=== PATIENT | female | born 1950 | race Caucasian/White ===

== ENCOUNTER → 2018-04-02 10:12 | Outpatient (CLI) | payer OTHER, SELFPAY ==
--- NOTE | 2018-04-02 | DI.MG.S_ITS ---
UNILATERAL RIGHT DIGITAL DIAGNOSTIC MAMMOGRAM 3D/2D SHORT-TERM FOLLOW-UP: 04/02/2018 CLINICAL: Patient returns for a 6 month follow up of the right breast. Comparison is made to exams dated: 09/28/2017 mammogram, 09/21/2017 mammogram, and 01/18/2013 mammogram - [facility]. The tissue of the right breast is heterogeneously dense. This may lower the sensitivity of mammography. There is an asymmetry in the right breast middle depth central to the nipple seen on the craniocaudal view only. This is not significantly changed. No other significant masses or calcifications are seen in the breast. IMPRESSION: PROBABLY BENIGN The asymmetry in the right breast is probably benign. A follow-up mammogram in 6 months is recommended to demonstrate stability. This exam was interpreted at Station ID: [id number]. NOTE: For mammograms, a report in lay terms will be sent to the patient. Approximately 15% of breast malignancies will not be visualized mammographically. In the management of a palpable breast mass, a negative mammogram must not discourage biopsy of a clinically suspicious lesion. SUMMARY: The patient will be due for her bilateral mammogram at this time. Electronically Signed By: Madeline Cevallos M.D. lk/:04/02/2018 10:51:11 letter sent: Followup Recommended ACR BI-RADS Category 3: Probably benign 3343F
== END ==
PROVIDERS: PCP Internal Medicine; Visit Provider Internal Medicine
DX: R92.8 Other abnormal and inconclusive findings on diagnostic imaging of breast (principal)
CPT/HCPCS: 77065; G0279

== ENCOUNTER → 2018-05-14 13:26 | Outpatient (CLI) | payer OTHER, SELFPAY ==
[2018-05-14 15:05] LABS: BUN Creatinine Ratio 23.8 (6-22); Blood Urea Nitrogen 19 mg/dL (7-17); Calcium 10.2 mg/dL (8.4-10.2); Carbon Dioxide 32 mmol/L (22-32); Chloride 98 mmol/L (98-107); Estimated Glomerular Filt Rate > 60.0 mL/min (>60); Glucose 162 mg/dL (80-110); HEMOLYSIS < 15 (0-50); Potassium 4.4 mmol/L (3.4-5.1); Sodium 142 mmol/L (137-145)
== END ==
PROVIDERS: PCP Internal Medicine; Visit Provider Internal Medicine
DX: I10 Essential (primary) hypertension (principal); R10.13 Epigastric pain
CPT/HCPCS: 36415; 80048; 86677

== ENCOUNTER → 2018-12-24 08:29 | Outpatient (CLI) | payer OTHER, SELFPAY ==
--- NOTE | 2018-12-24 | DI.MG.S_ITS ---
BILATERAL DIGITAL DIAGNOSTIC MAMMOGRAM 3D/2D: 12/24/2018 CLINICAL: Late short term follow up right breast. Due bilaterally. Comparison is made to exams dated: 04/02/2018 mammogram, 09/28/2017 mammogram, 09/21/2017 mammogram, and 01/18/2013 mammogram - [facility]. The tissue of both breasts is heterogeneously dense. This may lower the sensitivity of mammography. There is an asymmetry in the right breast middle depth central to the nipple seen on the craniocaudal view only. This is less prominent than the prior study and overall stable. No other significant masses, calcifications, or other findings are seen in either breast. IMPRESSION: PROBABLY BENIGN Stable to less prominent appearance of asymmetry in the right breast which is probably benign. It has been stable for one year. A 1 year follow up right breast mammogram is recommended to document 2-years of stability. A left breast screening mammogram is also recommended at that time. This exam was interpreted at Station ID: [id number]. NOTE: For mammograms, a report in lay terms will be sent to the patient. Approximately 15% of breast malignancies will not be visualized mammographically. In the management of a palpable breast mass, a negative mammogram must not discourage biopsy of a clinically suspicious lesion. Electronically Signed By: Alvin Rodríguez M.D. aty/:12/27/2018 09:44:21 letter sent: Followup Recommended ACR BI-RADS Category 3: Probably benign [id number]
== END ==
PROVIDERS: PCP Internal Medicine; Visit Provider Internal Medicine
DX: R92.8 Other abnormal and inconclusive findings on diagnostic imaging of breast (principal); N64.89 Other specified disorders of breast
CPT/HCPCS: 77066; G0279

== ENCOUNTER → 2020-12-20 11:00 | Outpatient (CLI) | payer OTHER, SELFPAY ==
--- NOTE | 2020-12-20 11:06 | DI.RAD.S_ITS ---
PROCEDURE: XR KNEE RT 3V INDICATIONS: Right knee pain and instability TECHNIQUE: 3 views of the knee were acquired. COMPARISON: None. FINDINGS: Bones: No fractures or dislocations. No suspicious bony lesions. Tricompartment degenerative arthritis with moderate medial compartment joint space loss. Soft tissues: Trace joint effusion. No suspicious soft tissue calcifications. IMPRESSION: Degenerative arthritis of the right knee. No evidence acute bony abnormality of the right knee. If clinical suspicion and/or symptoms persist, further assessment with repeat plain films, or advanced imaging (e.g., CT, MRI, or bone scan) may be helpful for further assessment. Dictated by: Kai Falcon M.D. on 12/20/2020 at 12:14 Approved by: Kai Falcon M.D. on 12/20/2020 at 12:15
== END ==
PROVIDERS: PCP Student in an Organized Health Care Education/Training Program; Referring Provider Student in an Organized Health Care Education/Training Program; Visit Provider Student in an Organized Health Care Education/Training Program
DX: M25.561 Pain in right knee (principal); M23.51 Chronic instability of knee, right knee; M17.11 Unilateral primary osteoarthritis, right knee
CPT/HCPCS: 73562

== ENCOUNTER → 2021-03-14 11:14 | Outpatient (CLI) | payer OTHER, SELFPAY ==
--- NOTE | 2021-03-14 11:20 | DI.MG.S_ITS ---
BILATERAL DIGITAL SCREENING MAMMOGRAM 3D/2D WITH CAD: 03/14/2021 CLINICAL: Routine screening. Comparison is made to exams dated: 12/24/2018 mammogram, 09/21/2017 mammogram, and 01/18/2013 mammogram - [facility]. The tissue of both breasts is heterogeneously dense. This may lower the sensitivity of mammography. Current study was also evaluated with a Computer Aided Detection (CAD) system. There are new grouped fine calcifications in the left breast at 1 o'clock anterior depth. No other significant masses, calcifications, or other findings are seen in either breast. IMPRESSION: INCOMPLETE: NEEDS ADDITIONAL IMAGING EVALUATION The new grouped fine calcifications in the left breast are indeterminate. Mediolateral, spot magnification, and additional views are recommended. This exam was interpreted at Station ID: [id number]. NOTE: For mammograms, a report in lay terms will be sent to the patient. Approximately 15% of breast malignancies will not be visualized mammographically. In the management of a palpable breast mass, a negative mammogram must not discourage biopsy of a clinically suspicious lesion. Electronically Signed By: Torrey payne/abida:03/14/2021 11:37:31 letter sent: Additional Imaging Needed ACR BI-RADS Category 0: Incomplete [id number]
--- NOTE | 2021-03-14 11:20 | DI.MRI.S_ITS ---
PROCEDURE: MR KNEE RT WO CON INDICATIONS: R knee pain and instability TECHNIQUE: Noncontrast sagittal PD fast spin echo and T2 fast spin echo with fat saturation, sagittal 3-D FLASH with fat saturation; coronal T1 spin echo and PD fast spin echo with fat saturation, and axial PD fast spin echo with fat saturation through the knee. COMPARISON: [facility], CR, XR KNEE RT 3V, 12/20/2020, 11:14. . FINDINGS: Menisci: Lateral meniscus appears intact. Ill-defined tear of the medial meniscal body with partial extrusion. Abnormal signal extends to the superior and inferior articular surface. Cruciate ligaments: Anterior cruciate ligament appears intact. Posterior cruciate ligament appears intact. Medial structures: There is medial bowing of the medial collateral ligament, with mild internal signal changes and no complete rupture. There is adjacent soft tissue edema. The appearance could reflect reactive changes to medial compartment pathology, versus low-grade sprain of the MCL. Pes anserinus tendons appear grossly unremarkable. Semimembranosus tendon appears intact. Lateral structures: The lateral collateral ligament demonstrates thickening and intrasubstance signal change in keeping with low grade sprain, statistically chronic, although technically age indeterminate. Biceps femoris tendon appears intact. Popliteus tendon grossly unremarkable. Iliotibial band appears intact. Anterior structures: Distal quadriceps tendinopathy and thickening. Medial and lateral patellofemoral ligaments intact. There is mild patellar tendinopathy. Prepatellar and superficial infrapatellar subcutaneous edema/fluid. Bones and cartilage: Marrow: No focal marrow contusion or discrete low signal fracture line. Medial compartment: Areas of full-thickness loss of the central weight-bearing femoral and tibial articular cartilage. Lateral compartment: No focal cartilage defect. Patellofemoral compartment: Mild surface fraying of the cartilage overlying the lateral patellar facet. Joint space: Moderate joint effusion. Trace fluid between the semimembranosus and medial gastrocnemius tendons without definite formed cyst. A possible loose body seen on image 88/8 measuring 7 mm in the intercondylar notch, however this is not well radiographically visualized on the comparison study. IMPRESSION: Ill-defined medial meniscal tear involving the body with partial extrusion. Adjacent MCL changes as above Distal quadriceps and patellar tendinopathy Severe joint degeneration, most pronounced in the medial compartment. Moderate joint effusion Subcentimeter loose body within the intercondylar notch Dictated by: Mirza Henry M.D. on 03/14/2021 at 13:10 Approved by: Mirza Henry M.D. on 03/14/2021 at 13:16
== END ==
PROVIDERS: PCP Student in an Organized Health Care Education/Training Program; Referring Provider Student in an Organized Health Care Education/Training Program; Visit Provider Student in an Organized Health Care Education/Training Program
DX: Z13.820 Encounter for screening for osteoporosis (principal); Z12.31 Encounter for screening mammogram for malignant neoplasm of breast; Z78.0 Asymptomatic menopausal state; M85.852 Other specified disorders of bone density and structure, left thigh; M23.51 Chronic instability of knee, right knee; S83.241A Other tear of medial meniscus, current injury, right knee, initial encounter; M25.461 Effusion, right knee; M17.11 Unilateral primary osteoarthritis, right knee; M25.561 Pain in right knee; Z72.0 Tobacco use
CPT/HCPCS: 73721; 77063; 77067; 77080

== ENCOUNTER → 2021-07-03 08:45 | Outpatient (CLI) | payer OTHER, SELFPAY ==
--- NOTE | 2021-07-03 | DI.MG.S_ITS ---
UNILATERAL LEFT DIGITAL DIAGNOSTIC MAMMOGRAM 3D/2D WITH ADDITIONAL VIEWS: 07/03/2021 CLINICAL: Additional evaluation requested from prior study. Comparison is made to exams dated: 03/14/2021 mammogram, 12/24/2018 mammogram, and 04/02/2018 mammogram - [facility]. The tissue of left breast is heterogeneously dense. This may lower the sensitivity of mammography. The grouped fine calcifications in the left breast at 1 o'clock anterior depth are probably benign. No other significant masses or calcifications are seen in the breast. IMPRESSION: PROBABLY BENIGN The new grouped fine calcifications in the left breast are probably benign. A follow-up mammogram in 6 months is recommended. This exam was interpreted at Station ID: [id number]. NOTE: For mammograms, a report in lay terms will be sent to the patient. Approximately 15% of breast malignancies will not be visualized mammographically. In the management of a palpable breast mass, a negative mammogram must not discourage biopsy of a clinically suspicious lesion. Electronically Signed By: Curtis Dexter M.D. jr/:07/03/2021 09:21:30 letter sent: Followup Recommended ACR BI-RADS Category 3: Probably benign [id number]
== END ==
PROVIDERS: PCP Student in an Organized Health Care Education/Training Program; Referring Provider Student in an Organized Health Care Education/Training Program; Visit Provider Student in an Organized Health Care Education/Training Program
DX: R92.8 Other abnormal and inconclusive findings on diagnostic imaging of breast (principal); R92.1 Mammographic calcification found on diagnostic imaging of breast
CPT/HCPCS: 77065; G0279

== ENCOUNTER 2022-01-29 11:10 | Emergency (ER) | payer MEDICARE, SELFPAY ==
[2022-01-29 11:14] VITALS: BP 172/81; PULSE 69; RESP 15; TEMP 36.4; O2SAT 100; BMI 26.0
--- NOTE | 2022-01-29 11:18 | DI.RAD.S_ITS ---
PROCEDURE: XR CHEST 1V INDICATIONS: chest pain TECHNIQUE: One view of the chest was acquired. COMPARISON: [facility], , CHEST 2 VIEW, 11/18/2016, 16:26. FINDINGS: Surgical changes and devices: None. Lungs and pleura: Lungs are clear. No pleural effusions or pneumothorax. Mediastinum: Mediastinal contours appear normal. Heart size is normal. Bones and chest wall: No suspicious bony lesions. Overlying soft tissues appear unremarkable. IMPRESSION: No acute cardiopulmonary abnormality. Dictated by: Bill Richards M.D. on 01/29/2022 at 10:55 Approved by: Bill Richards M.D. on 01/29/2022 at 10:57
[2022-01-29 11:47] LABS: Add Manual Diff / Slide Review NO; Basophils Absolute Auto 100 /uL (0-100); Basophils Percent Auto 1.2 % (0-2); Eosinophils Absolute Auto 100 /uL (0-450); Eosinophils Percent Auto 0.7 % (2-4); Hematocrit 41.4 % (36-46); Hemoglobin 13.9 g/dL (12.0-16.0); Lymphocytes Absolute Auto 6100 /uL (1100-4500); Lymphocytes Percent Auto 51.9 % (25-40); Mean Corpuscular HGB Conc 33.6 % (30-36); Mean Corpuscular Hemoglobin 30.4 PG (26-34); Mean Corpuscular Volume 90.6 fL (80-100); Monocytes Absolute Auto 600 /uL (0-900); Monocytes Percent Auto 4.7 % (3-14); Neutrophils Absolute Auto 4900 /uL (1500-7000); Neutrophils Percent Auto 41.5 % (50-75); Platelet Count 267 X10^3/uL (150-400); Red Blood Cell Count 4.58 X10^6/uL (4.0-5.2); Red Cell Distribution Width 13.6 % (11.6-14.8); White Blood Cell Count 11.8 X10^3/uL (4.5-11.0)
[2022-01-29 11:52] LABS: Prothrombin Time 11.2 SECONDS (10.1-12.7)
[2022-01-29 11:55] LABS: PTT Partial Thromboplastin Tim 33 SECONDS (26.4-36.2)
[2022-01-29 12:00] LABS: Alanine Aminotransferase 29 IU/L (<35); Albumin 4.8 g/dL (3.5-5.0); Albumin Globulin Ratio 1.8 (1.0-2.8); Alkaline Phosphatase 70 U/L (38-126); Aspartate Aminotransferase 43 IU/L (14-36); BUN Creatinine Ratio 17.6 (6-22); Bilirubin Total 0.7 mg/dL (0.2-1.3); Blood Urea Nitrogen 15 mg/dL (7-17); Calcium 10.1 mg/dL (8.4-10.2); Carbon Dioxide 30 mmol/L (22-32); Chloride 101 mmol/L (98-107); Creatine Kinase 75 U/L (30-135); Estimated Glomerular Filt Rate > 60.0 mL/min (>60); Globulin 2.7 g/dL (1.7-4.1); Glucose 109 mg/dL (80-110); HEMOLYSIS 16 (0-50); Lipase 184 U/L (23-300); Magnesium 2.2 mg/dL (1.6-2.3); Sodium 140 mmol/L (137-145); Total Protein 7.5 g/dL (6.3-8.2)
[2022-01-29 12:05] VITALS: BP 166/77; PULSE 71; O2SAT 100
[2022-01-29 12:10] VITALS: BP 159/81; PULSE 69; RESP 18; O2SAT 99
[2022-01-29 12:11] LABS: Troponin I < 0.012 ng/mL (0.01-0.034)
[2022-01-29 12:30] VITALS: BP 142/89; PULSE 71; RESP 23; O2SAT 98
--- NOTE | 2022-01-29 12:33 | ED.CHESTPAIN ---
HPI - Chest Pain General Chief Complaint: Chest Pain Stated Complaint: chest pain, has 4 stents Time Seen by Provider: 01/29/22 12:15 Source: patient Mode of arrival: Ambulatory Limitations: no limitations Limitations: no limitations History of Present Illness HPI narrative: 71-year-old female who has known coronary artery disease. Here for evaluation of chest discomfort. She states that her chest discomfort did start last evening. It was present this morning has continued since then. There has been sometimes what is worse than other. No nausea vomiting. Shortness of breath. She is here because her daughter forced her to come because of her prior cardiac history. She is taking all medications as directed. Related Data Home Medications Medication Instructions Recorded Confirmed aspirin 81 mg tablet,delayed 81 mg PO DAILY 09/23/19 12/20/20 release (Adult Low Dose Aspirin) multivitamin,[id number] 1 tab PO DAILY 09/23/19 12/20/20 (Complete Multivitamin) Previous Rx's Medication Instructions Recorded doxepin 50 mg capsule 50 mg PO BEDTIME #30 cap 12/20/20 furosemide 20 mg tablet 20 mg PO DAILY #90 tab 03/18/21 metoprolol succinate 50 mg 50 mg PO DAILY #90 tab 03/19/21 tablet,extended release 24 hr losartan 25 mg tablet 25 mg PO DAILY #90 tab 09/11/21 Allergies Allergy/AdvReac Type Severity Reaction Status Date / Time codeine Allergy Verified 01/29/22 11:14 Review of Systems Constitutional Constitutional: Reports system reviewed and no additional complaints, except as documented Cardiovascular Cardiovascular: Reports as per HPI and Reports system reviewed and no additional complaints, except as documented Respiratory Respiratory: Reports as per HPI and Reports system reviewed and no additional complaints, except as documented Gastrointestinal Gastrointestinal: Reports system reviewed and no additional complaints, except as documented Musculoskeletal Musculoskeletal: Reports system reviewed and no additional complaints, except as documented and Reports as per HPI Integumentary/Breasts Skin/Breast: Reports system reviewed and no additional complaints, except as documented Neurologic Neurologic: Reports system reviewed and no additional complaints, except as documented and Reports as per HPI Hematologic/Lymphatic On Anticoagulants: No Patient History Medical History CAD (coronary artery disease) Degenerative joint disease of knee, right Insomnia Recurrent right knee instability Social History (Reviewed 01/29/22 @ 17:01 by BAILEY Ortega Smoking Status: Current every day smoker Smoking Status: Current every day smoker alcohol intake frequency: holidays/special occasions only Substance Use Type: marijuana Exam Initial Vital Signs Initial Vital Signs: Vital Signs Temperature 97.5 F L 01/29/22 11:14 Pulse Rate 69 01/29/22 11:14 Respiratory Rate 15 01/29/22 11:14 Blood Pressure 172/81 H 01/29/22 11:14 Pulse Oximetry 100 01/29/22 11:14 HENMT Head: normal to inspection and normocephalic Resp Effort & Inspection: normal respiratory effort Cardio Rate: regular rate Rhythm: regular rhythm Skin General: no rashes or lesions noted Neuro General: patient alert, patient awake, patient oriented x3 and moves all extremities Extrem General: normal to inspection and capillary refill normal Psych Appearance: grossly normal and well kempt Course Orders Ordered: ED Orders 01/29/22 11:17 EKG-12 Lead Stat 01/29/22 11:18 XR chest 1V Stat 01/29/22 11:30 Complete Blood Count AUTO DIFF Stat Comprehensive Metabolic Panel Stat Lipase Stat Magnesium Stat Partial Thromboplastin Time Stat Prothrombin Time INR Stat Troponin & CK Cardiac Panel Stat Vital Signs Vital signs: Vital Signs - 8 hr 01/29/22 11:14 01/29/22 12:05 01/29/22 12:10 Temperature 97.5 F L Pulse Rate 69 71 69 Respiratory Rate 15 18 Blood Pressure 172/81 H 166/77 H 159/81 H Pulse Oximetry 100 100 99 01/29/22 12:30 Temperature Pulse Rate 71 Respiratory Rate 23 Blood Pressure 142/89 H Pulse Oximetry 98 MDM - Chest Pain Lab Data Attestation: I reviewed the patient's lab results. Result diagrams: 01/29/22 11:30 01/29/22 11:30 Labs: Lab Results 01/29/22 01/29/22 01/29/22 Range/Units 11:30 11:30 11:30 WBC 11.8 H (4.5-11.0) X10^3/uL RBC 4.58 (4.0-5.2) X10^6/uL Hgb 13.9 (12.0-16.0) g/dL Hct 41.4 (36-46) % MCV 90.6 (80-100) fL MCH 30.4 (26-34) PG MCHC 33.6 (30-36) % RDW 13.6 (11.6-14.8) % Plt Count 267 (150-400) X10^3/uL Neut % (Auto) 41.5 L (50-75) % Lymph % (Auto) 51.9 H (25-40) % [place] % (Auto) 4.7 (3-14) % Eos % (Auto) 0.7 L (2-4) % Baso % (Auto) 1.2 (0-2) % Neut # (Auto) 4900 (3072-8234) /uL Lymph # (Auto) 6100 H (1910-7653) /uL [place] # (Auto) 600 (0-900) /uL Eos # (Auto) 100 (0-450) /uL Baso # (Auto) 100 (0-100) /uL PT 11.2 (10.1-12.7) SECONDS INR 1.0 (0.9-1.3) APTT 33 (26.4-36.2) SECONDS Sodium 140 (137-145) mmol/L Potassium 4.0 (3.4-5.1) mmol/L Chloride 101 (98-107) mmol/L Carbon Dioxide 30 (22-32) mmol/L BUN 15 (7-17) mg/dL Creatinine 0.85 (0.52-1.04) mg/dL Estimated GFR > 60.0 (>60) mL/min BUN/Creatinine Ratio 17.6 (6-22) Glucose 109 (80-110) mg/dL Calcium 10.1 (8.4-10.2) mg/dL Magnesium 2.2 (1.6-2.3) mg/dL Total Bilirubin 0.7 (0.2-1.3) mg/dL AST 43 H (14-36) IU/L ALT 29 (<35) IU/L Alkaline Phosphatase 70 (38-126) U/L Total Creatine Kinase 75 (30-135) U/L CK-MB (CK-2) TNP CK-MB (CK-2) Rel Index TNP Troponin I < 0.012 (0.01-0.034) ng/mL Total Protein 7.5 (6.3-8.2) g/dL Albumin 4.8 (3.5-5.0) g/dL Globulin 2.7 (1.7-4.1) g/dL Albumin/Globulin Ratio 1.8 (1.0-2.8) Lipase 184 (23-300) U/L Imaging Data Chest x-ray: Radiologist's Impression: [address] [id number] XRay Report Signed Patient: Petra Tucker MR#: [id number] : 1950 Acct:[id number] Age/Sex: 71 / F Date of Service: 01/29/22 Loc: ED Accession Number: [id number] ?? Procedure: XR chest 1V Ordering Provider: Joon Oviedo D.O. PROCEDURE:? XR CHEST 1V ? INDICATIONS:? chest pain ? TECHNIQUE:? One view of the chest was acquired.? ? COMPARISON:? [facility], , CHEST 2 VIEW, 11/18/2016, 16:26. ? FINDINGS:? ? Surgical changes and devices:? None.? ? Lungs and pleura:? Lungs are clear.? No pleural effusions or pneumothorax.? ? Mediastinum:? Mediastinal contours appear normal.? Heart size is normal.? ? Bones and chest wall:? No suspicious bony lesions.? Overlying soft tissues appear unremarkable.? ? IMPRESSION:? No acute cardiopulmonary abnormality. ? ? Dictated by: Bill Richards M.D. on 01/29/2022 at 10:55 ? ? Approved by: Bill Richards M.D. on 01/29/2022 at 10:57?? ECG Data Attestation: I personally reviewed and interpreted this ECG as follows: Interpretation: Sinus rhythm Ventricular rate 46 Normal axis Normal QRS Normal QTC No ST T wave changes MDM Narrative Medical decision making narrative: Patient's EKG is unremarkable. Troponin is negative. Chest x-ray is unremarkable. Unremarkable exam. Patient has known coronary artery disease. I did discussion with her regarding her symptoms. Discussed with her the potential that her symptoms today are cardiac related however it is reassuring that her troponin is negative given the amount of time that she has been having symptoms. Patient states she would like to be discharged. Her is here in the hospital getting a blood transfusion secondary to cancer and she would like to go and be with him. She understands her risks and would still like to be discharged. She was given strict return precautions. She expressed understanding and agreement. Discharge Plan Departure Patient Disposition: Home Clinical Impression: Chest pain Instructions: DI for Chest Pain Activity Restrictions/Additional Instructions: I do recommend that you continue to take all of your medications as directed. Keep all of your schedule medical appointments. Return to the emergency department for any new or worsening symptoms. Prescriptions: No Action aspirin [Adult Low Dose Aspirin] 81 mg tablet,delayed release (DR/EC) 81 mg PO DAILY 0RF Complete Multivitamin Tablet 1 tab PO DAILY 0RF furosemide 20 mg tablet 20 mg PO DAILY Qty: 90 2RF metoprolol succinate 50 mg tablet extended release 24 hr 50 mg PO DAILY Qty: 90 2RF losartan 25 mg tablet 25 mg PO DAILY Qty: 90 0RF Rx Instructions: PT WILL NEED TO BE SEEN BEFORE NEXT FILL 09/11/21 doxepin 50 mg capsule 50 mg PO BEDTIME Qty: 30 0RF Referrals: Ricci Taylor MD [Primary Care Provider] -
== END 2022-01-29 12:48 | disposition home or self-care (01) ==
PROVIDERS: Emergency Provider Emergency Medicine; PCP Student in an Organized Health Care Education/Training Program
DX: R07.9 Chest pain, unspecified (principal); I25.10 Atherosclerotic heart disease of native coronary artery without angina pectoris; F17.200 Nicotine dependence, unspecified, uncomplicated
CPT/HCPCS: 36415; 71045; 80053; 82550; 83690; 83735; 84484; 85025; 85610; 85730; 93005; 99284

== ENCOUNTER 2022-06-05 09:00 | Outpatient (RCR) | payer MEDICARE, SELFPAY ==
--- NOTE | 2022-06-03 17:20 | PT.OIE ---
Current Diagnoses Pain in right knee (06/03/22) Difficulty in walking, not elsewhere classified (06/03/22) Weakness (06/03/22) Past Medical History (Last Reviewed 01/29/22 @ 17:01 by Joon Oviedo DO) CAD (coronary artery disease) Degenerative joint disease of knee, right Insomnia Recurrent right knee instability Visit Care Team Role Provider Type Tara Cruz DO Family Provider Non-Staff Primary Care Provider Specialty: Internal Medicine Address: [address] [place], [address] Email: Dimitri Pickens MD Attending Provider Non-Staff Referring Provider Specialty: Orthopedic Surgery Address: [facility] [place], [address] Email: Physical Therapy Initial Evaluation PT-OP-A Visit Information Start: 06/02/22 16:54 Freq: Status: Active Protocol: Document 06/03/22 09:04 [facility] (Rec: 06/03/22 09:43 [facility] [id number]) Out-Patient Physical Therapy Visit Information Visit Information Visit Type Initial Evaluation Visit Start Time 09:05 Evaluation Information Evaluation Date 06/03/22 PT-OP-B Current Condition Start: 06/02/22 16:54 Freq: Status: Active Protocol: Document 06/03/22 09:04 [facility] (Rec: 06/03/22 09:43 [facility] [id number]) Current Condition History of Current Condition Onset Date 6 months Current Complaints right knee History of Current Condition Dislocated patella when young, gradual onset of pain over the years. Recent x-ray showed arthritis. Several falls due to right LE giving way. Increased pain when in bed, 2 hours sleep, sometimes improved with walking. Lacks full extension in right knee. Sleeps on side, has tried to use small pillow between knees , but not able to keep in. Also worse pain after staying in one position for a long time. 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 After 4 years not being on Statins has been put back on due to high cholesterol, took for 2 weeks and stopped due to increasing her pain. Has been affecting pain. Has tried a knee band but not helpful. Has never had PT, no exercise besides walking. Using ice. Future Testing and Treatments Planned Goes back to doctor in approx 1 month Treatment Goals Patient/Caregiver Goals Decrease pain, be able to sleep through the night, stand and move without falls, improve strength Prior Functional Status Baseline Function- ADL's Independent Baseline Function- Mobility Independent Baseline Function- Gait min pain Current Functional Impairments (Reported) Functional Limitations- ADL's painful Functional Limitations- Mobility/Gait painful Functional Limitations- Other painful sleeping, painful after sitting for prolonged period. PT-OP-C Subjective Start: 06/02/22 16:54 Freq: Status: Active Protocol: Document 06/03/22 09:04 [facility] (Rec: 06/04/22 17:19 [facility] [id number]) Patient Questionnaires Lower Extremity Functional Scale LEFS Score 41 OP-PT Pain Assessment Pain Assessment Grid Paper Pain Assessment Grid Completed Yes Location right knee Pain Location Details ant/posterior, lateral knee Intensity 8 Description Aching,Chronic,Sharp,Stabbing, Tender Frequency Frequent Pain Alleviating Factors None Pain Behaviors Pain Behaviors Facial Grimacing,Guarding, Wincing PT-OP-G Mobility & Gait Start: 06/02/22 16:54 Freq: Status: Active Protocol: Document 06/03/22 09:04 [facility] (Rec: 06/04/22 17:19 [facility] [id number]) OP Gait Assessment Gait Gait Assistance Required: Independent Assistive Devices Assistive Device Straight Cane Orthotic/Prosthetic Devices or Brace: No Gait Deviations General Gait Pattern Antalgic Factors Limiting Gait Function Factors Limiting Gait Function Decreased Strength,Pain Stair Climbing Evaluation Evaluation Level of Assist On Stairs Independent Technique/Endurance Stair Climbing Technique Step to Step PT-OP-H Neuro Start: 06/02/22 16:54 Freq: Status: Active Protocol: Document 06/03/22 09:04 [facility] (Rec: 06/04/22 17:19 [facility] [id number]) Sensation Evaluation Gross Sensation Gross Sensation WNL PT-OP-J Posture/Palpation/Skin Start: 06/02/22 16:54 Freq: Status: Active Protocol: Document 06/03/22 09:04 [facility] (Rec: 06/04/22 17:19 [facility] [id number]) Posture Evaluation Position Standing Knee Posture (L) Neutral,(R) Genu Varus Patellar Posture (R) Laterally Tilted Palpation Assessment Location right knee Palpation Location joint line, IT band, lateral patella Palpation Findings Soft Tissue Tightness,Muscle Guarding,Tenderness PT-OP-K Range of Motion Start: 06/02/22 16:54 Freq: Status: Active Protocol: Document 06/03/22 09:04 [facility] (Rec: 06/04/22 17:19 [facility] [id number]) Hip Goniometric Range of Motion Hip mitul Flexion w/Knee Flexed 110 Straight Leg Raise 50 Extension 0 Abduction 35 Internal Rotation 25 External Rotation 50 Knee Goniometric Range of Motion Knee Right Flexion Active (degrees) 121 Extension Active (degrees) 8 Left Knee ROM WFL Yes Knee ROM Limitations Knee ROM Limitations Soft Tissue Tightness,Bony Restriction,Pain Ankle and Foot Goniometric Range of Motion Ankle and Foot mitul Dorsiflexion with Knee Extended 5 PT-OP-L Special Tests Start: 06/02/22 16:54 Freq: Status: Active Protocol: Document 06/03/22 09:04 [facility] (Rec: 06/04/22 17:19 [facility] [id number]) Special Tests Knee Special Tests Patellar Grind Test Test Results positive right Caryl's Test Test Results positive right Savage Test Test Results positive PT-OP-M Strength Start: 06/02/22 16:54 Freq: Status: Active Protocol: Document 06/03/22 09:04 [facility] (Rec: 06/04/22 17:19 [facility] [id number]) Hip Strength Hip Manual Muscle Testing mitul Comments 4-/5 throughout except ER 3+/5 Knee Strength Knee Manual Muscle Testing Right Flexion (S2) 4- Good- Extension (L3) 4- Good- Comments limited by pain Left Flexion (S2) 5 Normal Extension (L3) 5 Normal Ankle/Foot Strength Ankle and Foot Manual Muscle Testing Right Dorsiflexion (L4) 4 Good Plantarflexion (S1) 4 Good Left Dorsiflexion (L4) 5 Normal Plantarflexion (S1) 5 Normal PT-OP-Q Treatments Start: 06/02/22 16:54 Freq: Status: Active Protocol: Document 06/03/22 09:04 [facility] (Rec: 06/04/22 17:19 [facility] [id number]) Manual Therapy Treatment Taping 1 Body Location right knee Treatment Focus support, pain reduction Type of Tape Kinesio Tape Skin Inspection intact Comments 1 Y strip to facil medial patellar glide, 2 Y strips for patellar and knee stabilization 50-75% stretch all. Patient advised to remove if doesn't feel good, rash. Self-Care/Home Management Treatment Education Patient Education Home Exercise Program,Pain Management Other Education issued written HEP PT-OP-R Modalities Start: 06/02/22 16:54 Freq: Status: Active Protocol: Document 06/03/22 09:04 [facility] (Rec: 06/04/22 17:19 [facility] [id number]) Hot Pack/Cold Pack Treatment Cold Pack Location right knee Patient Position Hooklying Treatment Duration (minutes) 10 Patient Tolerance Good PT-OP-T Assessment and Plan Start: 06/02/22 16:54 Freq: Status: Active Protocol: Document 06/03/22 09:04 [facility] (Rec: 06/03/22 09:43 [facility] [id number]) Physical Therapy Assessment Rehab Potential Rehabilitation Potential Good Evaluation Complexity Number of Personal Factors/Comorbidities 1-2 Number of Body Systems Impaired 3 Clinical Presentation at Evaluation Evolving Impairments Impairments Activity Tolerance,Edema,Gait, Pain,ROM,Strength Goals antalgic gait and frequent falls Impairment antalgic gait, frequent falls Short Term Goal (STG) Patient will be able to walk without assistive device on level surfaces without limp STG Duration 07/10/22 Alf Goal (LTG) Patient will show improvement in functional balance as evidenced by no falls for at least 1 month LTG Duration 09/01/22 strength and ROM impairment Impairment dec ROM and strength right knee Short Term Goal (STG) Instruct in progressive HEP focused on ROm and strength left knee to improve her function STG Duration 06/22/22 Dub Room Engineer Goal (LTG) Patient to be independent and compliant with HEP and demonstrate left knee ROM WNL and strength 5/5 left knee and be able to move sit to stand without use of UE's as measure of improved functional strength LTG Duration 09/01/22 activity tolerance Impairment lower extremity functional scale score 41% Short Term Goal (STG) Improve LEFS score to at least 60% as measure of improved left LE function and activity tolerance STG Duration 07/10/22 Alf Goal (LTG) Improve LEFS to at least 75% as measure of improved left LE function and activity tolerance LTG Duration 09/01/22 pain Impairment left knee pain Impairment 8/10 on pain scale Short Term Goal (STG) Decrease pain to no greater than 4/10 STG Duration 07/10/22 Alf Goal (LTG) Decrease pain to no greater than 2/10 with all usual activities LTG Duration 09/01/22 Assessment Summary Assessment Patient presents with function -limiting pain right knee as well as recent onset mitul SI joints. Patient has genu varus, decreased extension, stands with incr weight- bearing lateral right foot with inc inversion, swelling right knee, excessive lateral glide right patella, tender to palpation medial joint line, instability with several falls . She is unable to transfer from sit to stand without the use of her UE's. 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 No exercises except for walking which is limited due to pain. Feel she would benefit from PT to decrease her pain and swelling, improve her strength and ROM, and help her return to her prior level of function . Physical Therapy Plan Frequency and Duration Frequency of Treatment 2x/Week Duration of Treatment 12 weeks Plan of Care Start Date 06/03/22 Plan of Care End Date 09/01/22 Therapeutic Interventions Therapeutic Interventions Aquatic Therapy,Gait Training, Home Exercise Program,Manual Therapy,Neuromuscular Re- education,Patient/Caregiver Education,Self-Care/Home Management,Taping,Therapeutic Activities,Therapeutic Exercises Modalities Cold Pack/Ice Massage,Electric Stimulation,Hot Packs, Infrared Therapy,Iontophoresis ,Ultrasound Next Visit Focus/Plan Next Note Type Treatment Note Next Visit Plan evaluate response to KT tape, ther ex, ice. Review HEP, progress as indicated.
--- NOTE | 2022-06-03 17:21 | PT.OPPOC ---
Physical, Occupational & Speech Therapy At [facility] Current Diagnoses Pain in right knee (06/03/22) Difficulty in walking, not elsewhere classified (06/03/22) Weakness (06/03/22) Visit Care Team Role Provider Type Tara Cruz DO Family Provider Non-Staff Primary Care Provider Specialty: Internal Medicine Address: [address] [facility], [place], [address] Email: Dimitri Pickens MD Attending Provider Non-Staff Referring Provider Specialty: Orthopedic Surgery Address: [address] [facility] , [place], [address] Email: Plan Of Care PT-OP-T Assessment and Plan Start: 06/02/22 16:54 Freq: Status: Active Protocol: Document 06/03/22 09:04 [facility] (Rec: 06/03/22 09:43 [facility] [id number]) Physical Therapy Assessment Rehab Potential Rehabilitation Potential Good Evaluation Complexity Number of Personal Factors/Comorbidities 1-2 Number of Body Systems Impaired 3 Clinical Presentation at Evaluation Evolving Impairments Impairments Activity Tolerance,Edema,Gait, Pain,ROM,Strength Goals antalgic gait and frequent falls Impairment antalgic gait, frequent falls Short Term Goal (STG) Patient will be able to walk without assistive device on level surfaces without limp STG Duration 07/10/22 Piano Tuner Goal (LTG) Patient will show improvement in functional balance as evidenced by no falls for at least 1 month LTG Duration 09/01/22 strength and ROM impairment Impairment dec ROM and strength right knee Short Term Goal (STG) Instruct in progressive HEP focused on ROm and strength left knee to improve her function STG Duration 06/22/22 Mcfp Goal (LTG) Patient to be independent and compliant with HEP and demonstrate left knee ROM WNL and strength 5/5 left knee and be able to move sit to stand without use of UE's as measure of improved functional strength LTG Duration 09/01/22 activity tolerance Impairment lower extremity functional scale score 41% Short Term Goal (STG) Improve LEFS score to at least 60% as measure of improved left LE function and activity tolerance STG Duration 07/10/22 Piano Tuner Goal (LTG) Improve LEFS to at least 75% as measure of improved left LE function and activity tolerance LTG Duration 09/01/22 pain Impairment left knee pain Impairment 8/10 on pain scale Short Term Goal (STG) Decrease pain to no greater than 4/10 STG Duration 07/10/22 Piano Tuner Goal (LTG) Decrease pain to no greater than 2/10 with all usual activities LTG Duration 09/01/22 Assessment Summary Assessment Patient presents with function -limiting pain right knee as well as recent onset mitul SI joints. Patient has genu varus, decreased extension, stands with incr weight- bearing lateral right foot with inc inversion, swelling right knee, excessive lateral glide right patella, tender to palpation medial joint line, instability with several falls . She is unable to transfer from sit to stand without the use of her UE's. 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 No exercises except for walking which is limited due to pain. Feel she would benefit from PT to decrease her pain and swelling, improve her strength and ROM, and help her return to her prior level of function . Physical Therapy Plan Frequency and Duration Frequency of Treatment 2x/Week Duration of Treatment 12 weeks Plan of Care Start Date 06/03/22 Plan of Care End Date 09/01/22 Therapeutic Interventions Therapeutic Interventions Aquatic Therapy,Gait Training, Home Exercise Program,Manual Therapy,Neuromuscular Re- education,Patient/Caregiver Education,Self-Care/Home Management,Taping,Therapeutic Activities,Therapeutic Exercises Modalities Cold Pack/Ice Massage,Electric Stimulation,Hot Packs, Infrared Therapy,Iontophoresis ,Ultrasound Next Visit Focus/Plan Next Note Type Treatment Note Next Visit Plan evaluate response to KT tape, ther ex, ice. Review HEP, progress as indicated. Plan of Care Dates Plan of Care Start Date 06/03/22 Plan of Care End Date 09/01/22 Electronically Signed by: Jaqueline Zaragoza, PT 06/04/22 1522 If you are in agreement with this Plan of Care, please return a signed and dated copy. I have reviewed this Plan of Care and certify that the skilled therapy services above are required to meet the patient?s needs. Physician Signature Date Printed Name and Credentials Clinical Instructor Signature Printed Name and Credentials
--- NOTE | 2022-06-05 09:58 | PT.OTN ---
Current Diagnoses Pain in right knee (06/05/22) Difficulty in walking, not elsewhere classified (06/05/22) Weakness (06/05/22) Physical Therapy Treatment Note PT-OP-A Visit Information Start: 06/02/22 16:54 Freq: Status: Active Protocol: Document 06/05/22 09:01 [facility] (Rec: 06/05/22 09:42 [facility] [id number]) Out-Patient Physical Therapy Visit Information Visit Information Visit Type Initial Evaluation Visit Start Time 09:00 Visit Stop Time 09:48 Total Visit Minutes 48 Visit Number 2 Evaluation Information Evaluation Date 06/03/22 PT-OP-B Current Condition Start: 06/02/22 16:54 Freq: Status: Active Protocol: Document 06/05/22 09:01 [facility] (Rec: 06/05/22 09:42 [facility] [id number]) Current Condition History of Current Condition Onset Date 6 months Current Complaints right knee History of Current Condition Dislocated patella when young, gradual onset of pain over the years. Recent x-ray showed arthritis. Several falls due to right LE giving way. Increased pain when in bed, 2 hours sleep, sometimes improved with walking. Lacks full extension in right knee. Sleeps on side, has tried to use small pillow between knees , but not able to keep in. Also worse pain after staying in one position for a long time. 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 After 4 years not being on Statins has been put back on due to high cholesterol, took for 2 weeks and stopped due to increasing her pain. Has been affecting pain. Has tried a knee band but not helpful. Has never had PT, no exercise besides walking. Using ice. Future Testing and Treatments Planned Goes back to doctor in approx 1 month PT-OP-C Subjective Start: 06/02/22 16:54 Freq: Status: Active Protocol: Document 06/05/22 09:01 [facility] (Rec: 06/05/22 09:42 [facility] [id number]) OP-PT Subjective Patient Comments Patient Comments Patient reports soreness left knee. Too expensive to come to PT 2x/wk, requests 1x/wk with emphasis on HEP. PT-OP-G Mobility & Gait Start: 06/02/22 16:54 Freq: Status: Active Protocol: Document 06/03/22 09:04 [facility] (Rec: 06/04/22 17:19 [facility] [id number]) OP Gait Assessment Gait Gait Assistance Required: Independent Assistive Devices Assistive Device Straight Cane Orthotic/Prosthetic Devices or Brace: No Gait Deviations General Gait Pattern Antalgic Factors Limiting Gait Function Factors Limiting Gait Function Decreased Strength,Pain Stair Climbing Evaluation Evaluation Level of Assist On Stairs Independent Technique/Endurance Stair Climbing Technique Step to Step PT-OP-H Neuro Start: 06/02/22 16:54 Freq: Status: Active Protocol: Document 06/03/22 09:04 [facility] (Rec: 06/04/22 17:19 [facility] [id number]) Sensation Evaluation Gross Sensation Gross Sensation WNL PT-OP-J Posture/Palpation/Skin Start: 06/02/22 16:54 Freq: Status: Active Protocol: Document 06/03/22 09:04 [facility] (Rec: 06/04/22 17:19 [facility] [id number]) Posture Evaluation Position Standing Knee Posture (L) Neutral,(R) Genu Varus Patellar Posture (R) Laterally Tilted Palpation Assessment Location right knee Palpation Location joint line, IT band, lateral patella Palpation Findings Soft Tissue Tightness,Muscle Guarding,Tenderness PT-OP-K Range of Motion Start: 06/02/22 16:54 Freq: Status: Active Protocol: Document 06/03/22 09:04 [facility] (Rec: 06/04/22 17:19 [facility] [id number]) Hip Goniometric Range of Motion Hip mitul Flexion w/Knee Flexed 110 Straight Leg Raise 50 Extension 0 Abduction 35 Internal Rotation 25 External Rotation 50 Knee Goniometric Range of Motion Knee Right Flexion Active (degrees) 121 Extension Active (degrees) 8 Left Knee ROM WFL Yes Knee ROM Limitations Knee ROM Limitations Soft Tissue Tightness,Bony Restriction,Pain Ankle and Foot Goniometric Range of Motion Ankle and Foot mitul Dorsiflexion with Knee Extended 5 PT-OP-L Special Tests Start: 06/02/22 16:54 Freq: Status: Active Protocol: Document 06/03/22 09:04 [facility] (Rec: 06/04/22 17:19 [facility] [id number]) Special Tests Knee Special Tests Patellar Grind Test Test Results positive right Caryl's Test Test Results positive right Savage Test Test Results positive PT-OP-M Strength Start: 06/02/22 16:54 Freq: Status: Active Protocol: Document 06/03/22 09:04 [facility] (Rec: 06/04/22 17:19 [facility] [id number]) Hip Strength Hip Manual Muscle Testing mitul Comments 4-/5 throughout except ER 3+/5 Knee Strength Knee Manual Muscle Testing Right Flexion (S2) 4- Good- Extension (L3) 4- Good- Comments limited by pain Left Flexion (S2) 5 Normal Extension (L3) 5 Normal Ankle/Foot Strength Ankle and Foot Manual Muscle Testing Right Dorsiflexion (L4) 4 Good Plantarflexion (S1) 4 Good Left Dorsiflexion (L4) 5 Normal Plantarflexion (S1) 5 Normal PT-OP-Q Treatments Start: 06/02/22 16:54 Freq: Status: Active Protocol: Document 06/05/22 09:01 [facility] (Rec: 06/05/22 09:42 [facility] [id number]) Cardio Equipment Recumbent Stepper (Sci-Fit) Duration (Minutes) 5 Resistance 1 Other cues for LE alignment Therapeutic Exercises Supine Exercises supine clam Equipment Used L2 TB Reps/Minutes 10x ball squeeze Reps/Minutes 10x glut set Reps/Minutes 10x SAQ Reps/Minutes 10x hamstring set Reps/Minutes 10x quad Reps/Minutes 10x Standing Exercises sit to stand Equipment Used mirror Reps/Minutes 10 Comments cues for LE alignment Self-Care/Home Management Treatment Education Patient Education Home Exercise Program Other Education updated HEP given information regarding obtaining gel ice pack for home use PT-OP-R Modalities Start: 06/02/22 16:54 Freq: Status: Active Protocol: Document 06/05/22 09:01 [facility] (Rec: 06/05/22 09:58 [facility] [id number]) Hot Pack/Cold Pack Treatment Cold Pack Location right knee Patient Position Hooklying Treatment Duration (minutes) 10 Patient Tolerance Good Comments small under, large on top of knee PT-OP-T Assessment and Plan Start: 06/02/22 16:54 Freq: Status: Active Protocol: Document 06/05/22 09:01 [facility] (Rec: 06/05/22 09:42 [facility] [id number]) Physical Therapy Assessment Impairments Impairments Activity Tolerance,Edema,Gait, Pain,ROM,Strength Goals antalgic gait and frequent falls Impairment antalgic gait, frequent falls Short Term Goal (STG) Patient will be able to walk without assistive device on level surfaces without limp STG Duration 07/10/22 Crude Unit Operator Goal (LTG) Patient will show improvement in functional balance as evidenced by no falls for at least 1 month LTG Duration 09/01/22 strength and ROM impairment Impairment dec ROM and strength right knee Short Term Goal (STG) Instruct in progressive HEP focused on ROm and strength left knee to improve her function STG Duration 06/22/22 Crude Unit Operator Goal (LTG) Patient to be independent and compliant with HEP and demonstrate left knee ROM WNL and strength 5/5 left knee and be able to move sit to stand without use of UE's as measure of improved functional strength LTG Duration 09/01/22 activity tolerance Impairment lower extremity functional scale score 41% Short Term Goal (STG) Improve LEFS score to at least 60% as measure of improved left LE function and activity tolerance STG Duration 07/10/22 Longterm Goal (LTG) Improve LEFS to at least 75% as measure of improved left LE function and activity tolerance LTG Duration 09/01/22 pain Impairment left knee pain Impairment 8/10 on pain scale Short Term Goal (STG) Decrease pain to no greater than 4/10 STG Duration 07/10/22 Crude Unit Operator Goal (LTG) Decrease pain to no greater than 2/10 with all usual activities LTG Duration 09/01/22 Assessment Summary Assessment Patient required mod cues for LE alignment and correct muscle activation with all ther ex. Updated HEP to include sit to stand, SLR, and bridges. Good tolerance to ice, given information for obtaining ice pack for home use. Patient requesting decreased POC for 1x/wk. Physical Therapy Plan Frequency and Duration Frequency of Treatment 1x/Week Duration of Treatment 12 weeks Plan of Care Start Date 06/03/22 Plan of Care End Date 09/01/22 Therapeutic Interventions Therapeutic Interventions Aquatic Therapy,Gait Training, Home Exercise Program,Manual Therapy,Neuromuscular Re- education,Patient/Caregiver Education,Self-Care/Home Management,Taping,Therapeutic Activities,Therapeutic Exercises Modalities Cold Pack/Ice Massage,Electric Stimulation,Hot Packs, Infrared Therapy,Iontophoresis ,Ultrasound Next Visit Focus/Plan Next Note Type Treatment Note Next Visit Plan Evaluate response to updated HEP.
--- NOTE | 2022-06-25 08:07 | PT.OPDS ---
Current Diagnoses Pain in right knee (06/05/22) Difficulty in walking, not elsewhere classified (06/05/22) Weakness (06/05/22) Visit Care Team Role Provider Type Tara Cruz DO Family Provider Non-Staff Primary Care Provider Specialty: Internal Medicine Address: [address] [facility] [address], [place], [address] Email: Dimitri Pickens MD Attending Provider Non-Staff Referring Provider Specialty: Orthopedic Surgery Address: [address] [facility] [place], [address] Email: Visit Number Visit Number 2 Discharge Summary PT-OP-B Current Condition Start: 06/02/22 16:54 Freq: Status: Active Protocol: Document 06/05/22 09:01 [facility] (Rec: 06/05/22 09:42 [facility] [id number]) Current Condition History of Current Condition Onset Date 6 months Current Complaints right knee History of Current Condition Dislocated patella when young, gradual onset of pain over the years. Recent x-ray showed arthritis. Several falls due to right LE giving way. Increased pain when in bed, 2 hours sleep, sometimes improved with walking. Lacks full extension in right knee. Sleeps on side, has tried to use small pillow between knees , but not able to keep in. Also worse pain after staying in one position for a long time. 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 After 4 years not being on Statins has been put back on due to high cholesterol, took for 2 weeks and stopped due to increasing her pain. Has been affecting pain. Has tried a knee band but not helpful. Has never had PT, no exercise besides walking. Using ice. Future Testing and Treatments Planned Goes back to doctor in approx 1 month PT-OP-C Subjective Start: 06/02/22 16:54 Freq: Status: Active Protocol: Document 06/05/22 09:01 [facility] (Rec: 06/05/22 09:42 [facility] [id number]) OP-PT Subjective Patient Comments Patient Comments Patient reports soreness left knee. Too expensive to come to PT 2x/wk, requests 1x/wk with emphasis on HEP. PT-OP-G Mobility & Gait Start: 06/02/22 16:54 Freq: Status: Active Protocol: Document 06/03/22 09:04 [facility] (Rec: 06/04/22 17:19 [facility] [id number]) OP Gait Assessment Gait Gait Assistance Required: Independent Assistive Devices Assistive Device Straight Cane Orthotic/Prosthetic Devices or Brace: No Gait Deviations General Gait Pattern Antalgic Factors Limiting Gait Function Factors Limiting Gait Function Decreased Strength,Pain Stair Climbing Evaluation Evaluation Level of Assist On Stairs Independent Technique/Endurance Stair Climbing Technique Step to Step PT-OP-H Neuro Start: 06/02/22 16:54 Freq: Status: Active Protocol: Document 06/03/22 09:04 [facility] (Rec: 06/04/22 17:19 [facility] [id number]) Sensation Evaluation Gross Sensation Gross Sensation WNL PT-OP-J Posture/Palpation/Skin Start: 06/02/22 16:54 Freq: Status: Active Protocol: Document 06/03/22 09:04 [facility] (Rec: 06/04/22 17:19 [facility] [id number]) Posture Evaluation Position Standing Knee Posture (L) Neutral,(R) Genu Varus Patellar Posture (R) Laterally Tilted Palpation Assessment Location right knee Palpation Location joint line, IT band, lateral patella Palpation Findings Soft Tissue Tightness,Muscle Guarding,Tenderness PT-OP-K Range of Motion Start: 06/02/22 16:54 Freq: Status: Active Protocol: Document 06/03/22 09:04 [facility] (Rec: 06/04/22 17:19 [facility] [id number]) Hip Goniometric Range of Motion Hip mitul Flexion w/Knee Flexed 110 Straight Leg Raise 50 Extension 0 Abduction 35 Internal Rotation 25 External Rotation 50 Knee Goniometric Range of Motion Knee Right Flexion Active (degrees) 121 Extension Active (degrees) 8 Left Knee ROM WFL Yes Knee ROM Limitations Knee ROM Limitations Soft Tissue Tightness,Bony Restriction,Pain Ankle and Foot Goniometric Range of Motion Ankle and Foot mitul Dorsiflexion with Knee Extended 5 PT-OP-L Special Tests Start: 06/02/22 16:54 Freq: Status: Active Protocol: Document 06/03/22 09:04 [facility] (Rec: 06/04/22 17:19 [facility] [id number]) Special Tests Knee Special Tests Patellar Grind Test Test Results positive right Caryl's Test Test Results positive right Savage Test Test Results positive PT-OP-M Strength Start: 06/02/22 16:54 Freq: Status: Active Protocol: Document 06/03/22 09:04 [facility] (Rec: 06/04/22 17:19 [facility] [id number]) Hip Strength Hip Manual Muscle Testing mitul Comments 4-/5 throughout except ER 3+/5 Knee Strength Knee Manual Muscle Testing Right Flexion (S2) 4- Good- Extension (L3) 4- Good- Comments limited by pain Left Flexion (S2) 5 Normal Extension (L3) 5 Normal Ankle/Foot Strength Ankle and Foot Manual Muscle Testing Right Dorsiflexion (L4) 4 Good Plantarflexion (S1) 4 Good Left Dorsiflexion (L4) 5 Normal Plantarflexion (S1) 5 Normal PT-OP-T Assessment and Plan Start: 06/02/22 16:54 Freq: Status: Active Protocol: Document 06/25/22 08:06 [facility] (Rec: 06/25/22 08:06 [facility] [id number]) Physical Therapy Plan Discharge Physical Therapy Discharge Reasons Patient Request Discharge Comments Patient had 2 PT appointments then cancelled further apointments due to PT not helping. May seek PT from another PT.
== END 2023-05-19 10:37 | disposition home or self-care (01) ==
LOC: PHYS 09:00
PROVIDERS: Family Provider Student in an Organized Health Care Education/Training Program; PCP Student in an Organized Health Care Education/Training Program; Referring Provider Orthopaedic Surgery; Visit Provider Orthopaedic Surgery
DX: M25.561 Pain in right knee (principal); R26.2 Difficulty in walking, not elsewhere classified; R53.1 Weakness
CPT/HCPCS: 97110; 97140; 97162; 97535

== ENCOUNTER 2022-06-29 09:27 | Emergency (ER) | payer MEDICARE, SELFPAY ==
[2022-06-29 09:54] VITALS: PULSE 85; O2SAT 95
[2022-06-29 09:55] VITALS: BP 135/90; PULSE 78; O2SAT 97
[2022-06-29 09:56] VITALS: BP 135/90; PULSE 80; RESP 18; TEMP 37.1; O2SAT 98; BMI 27.5
--- NOTE | 2022-06-29 09:59 | DI.RAD.S_ITS ---
PROCEDURE: XR KNEE RT 3V INDICATIONS: pain, swelling R knee TECHNIQUE: 3 views of the knee were acquired. COMPARISON: [facility], , XR KNEE RT 3V, 12/20/2020, 11:14. FINDINGS: Bones: No fractures or dislocations. No suspicious bony lesions. Medial compartmental moderate joint space narrowing with marginal osteophyte. Soft tissues: Moderate joint effusion. No suspicious soft tissue calcifications. IMPRESSION: Osteoarthritis and moderate joint effusion. No fracture. Approved by: Marco Alfaro M.D. on 06/29/2022 at 10:29
[2022-06-29 10:00] VITALS: BP 139/95; PULSE 76; O2SAT 99
[2022-06-29 10:18] VITALS: BP 139/95; PULSE 70; RESP 18; O2SAT 98
--- NOTE | 2022-06-29 10:18 | ED_ITS ---
HPI - Extremity Injury (Lower) General Chief Complaint: Extremity Injury, Lower Stated Complaint: rt knee is giving out & constant pain Time Seen by Provider: 06/29/22 09:58 Source: patient Mode of arrival: Ambulatory History of Present Illness HPI Narrative: 71-year-old female daily smoker with history of known right knee meniscal tear, osteoarthritis and hypertension presents with her in the chief complaint of knee pain with ambulation and occasional giving out of her knee. She is had physical therapy in the past and has been told she needs another MRI which is scheduled for a few weeks from now. She denies any back pain or loss of control of bowel or bladder. She ambulates in without significant difficulty. She denies any fever or chills. Related Data Home Medications Medication Instructions Recorded Confirmed aspirin 81 mg tablet,delayed 81 mg PO DAILY 09/23/19 12/20/20 release (Adult Low Dose Aspirin) multivitamin,[id number] 1 tab PO DAILY 09/23/19 12/20/20 (Complete Multivitamin tablet) Previous Rx's Medication Instructions Recorded doxepin 50 mg capsule 50 mg PO BEDTIME #30 caps 12/20/20 furosemide 20 mg tablet 20 mg PO DAILY #90 tabs 03/18/21 metoprolol succinate 50 mg 50 mg PO DAILY #90 tabs 03/19/21 tablet,extended release 24 hr losartan 25 mg tablet 25 mg PO DAILY #90 tabs 09/11/21 Allergies Allergy/AdvReac Type Severity Reaction Status Date / Time codeine Allergy Verified 01/29/22 11:14 Review of Systems Review of Systems Narrative: GENERAL: Denies chills, fatigue, malaise, fever, sweats. HEENT: Denies sinus pain, ear pain, sore throat, difficulty swallowing, dizziness. RESPIRATORY: Denies dyspnea, cough, wheezing, hemoptysis, sputum. CARDIOVASCULAR: Denies chest pain, palpitations, orthopnea, edema, GASTROINTESTINAL: Denies nausea, vomiting, abdominal pain, diarrhea, constipation, melena. : Denies dysuria, frequency, incontinence, hematuria, urinary retention. MUSCULOSKELETAL: See HPI SKIN: Denies rash, skin lesions, or other NEUROLOGIC: Denies weakness, headache, numbness, change in speech, confusion, seizures, incoordination. PSYCHIATRIC: No concerning psychosocial issues. 12 point review of systems is negative except for those stated above Patient History Medical History CAD (coronary artery disease) Degenerative joint disease of knee, right Insomnia Recurrent right knee instability Social History Smoking Status: Current every day smoker Smoking Status: Current every day smoker alcohol intake frequency: holidays/special occasions only Substance Use Type: marijuana Exam Narrative Exam Narrative: GEN: AOx3 and in mild distress EYES: Pupils are equal, round, and reactive to light and accommodation. Extraoccular muscles are intact bilaterally. There is no subconjunctival hemorrhage or exudate. CHEST: Lungs are clear to auscultation bilaterally and free of wheezes, rales, or rhonchi. Heart rate is regular rhythm, there are no murmurs, clicks, rubs, or gallops. There is no chest wall tenderness. ABD: Abdomen is soft and nontender. There is no guarding or rebound. Bowel sounds are normal in all 4 quadrants. There is no mass or organomegaly. EXT: No ligamentous laxity, very minimal effusion, no warmth or redness of right knee. Negative Darnell's, no bony point tenderness SKIN: Warm, pink, and dry. No erythema or rash Initial Vital Signs Initial Vital Signs: Vital Signs Pulse Rate 85 06/29/22 09:54 Pulse Oximetry 95 06/29/22 09:54 Procedures Orthopedic Splinting/Casting Injury #1: Lower Extremity Injury Location: knee Lower Extremity Immobilizer: knee immobilizer Other Orthopedic Equipment: crutches Post splinting neuro exam: intact Post splinting vascular exam: intact Placed by: Nursing Course Orders Ordered: ED Orders 06/29/22 09:59 XR knee RT 3V Stat Vital Signs Vital signs: Vital Signs - 8 hr 06/29/22 09:56 06/29/22 10:18 06/29/22 09:54 Temperature 98.8 F Pulse Rate 80 70 85 Respiratory Rate 18 18 Blood Pressure 135/90 139/95 H Pulse Oximetry 98 98 95 Oxygen Delivery Method Room Air Room Air 06/29/22 09:55 06/29/22 09:55 06/29/22 10:00 Temperature Pulse Rate 78 Respiratory Rate Blood Pressure 135/90 139/95 H Pulse Oximetry 97 Oxygen Delivery Method 06/29/22 10:00 06/29/22 11:24 Temperature Pulse Rate 76 78 Respiratory Rate 18 Blood Pressure 140/75 Pulse Oximetry 99 98 Oxygen Delivery Method Room Air MDM - Extremity Injury (Lower) Imaging Data Extremity x-ray #1: Radiologist's Impression: Close Knee X-Ray (Signed) Marco Alfaro - 06/29/22 Chest X-Ray (Signed) Bill Richards - 01/29/22 Mammogram, Additional Views (Signed) Curtis Dexter - 07/03/21 DEXA Result 03/14/21 Mammogram Screening (Signed) Torrey Lynch - 03/14/21 Knee MRI (Signed) Mirza Henry - 03/14/21 Bone Densitometry 03/14/21 Knee X-Ray (Signed) Kai Falcon - 12/20/20 Knee X-Ray (Cancelled) 12/20/20 Mammogram Diagnostic (Signed) AnneMichelleAlvin - 12/24/18 Mammogram Diagnostic (Signed) Madeline Cevallos - 04/02/18 Launch?[address] [address] XRay Report Signed Patient: Petra Tucker MR#: [id number] : 1950 Acct:[id number] Age/Sex: 71 / F Date of Service: 06/29/22 Loc: Accession Number: [id number] ?? Procedure: XR knee RT 3V Ordering Provider: Caleb Grimes D.O. PROCEDURE:? XR KNEE RT 3V ? INDICATIONS:? pain, swelling R knee ? TECHNIQUE:? 3 views of the knee were acquired.? ? COMPARISON:? [facility], , XR KNEE RT 3V, 12/20/2020, 11:14. ? FINDINGS:? ? Bones:? No fractures or dislocations.? No suspicious bony lesions.? Medial compartmental moderate joint space narrowing with marginal osteophyte. ? Soft tissues:? Moderate joint effusion.? No suspicious soft tissue calcifications.? ? ? IMPRESSION:? ? Osteoarthritis and moderate joint effusion.? No fracture. ? ? ? Approved by: Marco Alfaro M.D. on 06/29/2022 at 10:29? Discharge Plan Departure Patient Disposition: Home Clinical Impression: Right knee meniscal tear, Knee osteoarthritis Instructions: DI for Meniscal Tear, DI for Knee Pain Activity Restrictions/Additional Instructions: *You have been diagnosed with [right knee pain, likely meniscal tear and osteoarthritis] *What to do: *Please continue to take your regular medications as directed. [ ] New medication prescriptions sent to your pharmacy: [ ] [ ] New medication written as a paper prescription [ x] No new medications given *Please follow up with your primary orthopedist in 5-7 days, call for an appointment. Let them know you were seen in the Emergency Department and that we ask that you be seen in follow up. We will electronically transmit a record of today's note if your PCP is in our system *If you do not have a primary care provider please contact the [facility] Resource line at [phone]. They will ask some questions about your medical history and help get you set up with a doctor in the community. *Return to Emergency Department if you should have any new, worsening or concerning symptoms, such as [fever greater than 101 F, shaking chills, worsening pain, persistent vomiting or other bothersome symptoms] Radiographic study has been interpreted by an emergency physician. The official diagnosis by radiology will be performed within the next 24 hours and should there be any change in outcome we will notify you of how to proceed. Prescriptions: No Action aspirin [Adult Low Dose Aspirin] 81 mg tablet,delayed release (DR/EC) 81 mg PO DAILY Complete Multivitamin Tablet 1 tab PO DAILY furosemide 20 mg tablet 20 mg PO DAILY Qty: 90 2RF metoprolol succinate 50 mg tablet extended release 24 hr 50 mg PO DAILY Qty: 90 2RF losartan 25 mg tablet 25 mg PO DAILY Qty: 90 0RF Rx Instructions: PT WILL NEED TO BE SEEN BEFORE NEXT FILL 09/11/21 doxepin 50 mg capsule 50 mg PO BEDTIME Qty: 30 0RF Referrals: Tara Cruz DO [Primary Care Provider] - Jam Patten MD [Physician] - Visit Report Forms: Patient Portal/API
[2022-06-29 11:24] VITALS: BP 140/75; PULSE 78; RESP 18; O2SAT 98
== END 2022-06-29 11:05 | disposition home or self-care (01) ==
PROVIDERS: Emergency Provider Emergency Medicine; Family Provider Student in an Organized Health Care Education/Training Program; PCP Student in an Organized Health Care Education/Training Program
DX: S83.241A Other tear of medial meniscus, current injury, right knee, initial encounter (principal); M17.11 Unilateral primary osteoarthritis, right knee
CPT/HCPCS: 73562; 99283

== ENCOUNTER → 2022-09-29 09:56 | Outpatient (CLI) | payer MEDICARE, SELFPAY ==
[2022-09-29 11:03] LABS: COVID19 -Nasal RAPID Negative (Negative)
== END ==
PROVIDERS: Family Provider Student in an Organized Health Care Education/Training Program; PCP Student in an Organized Health Care Education/Training Program; Referring Provider Orthopaedic Surgery; Visit Provider Orthopaedic Surgery
DX: Z20.822 Contact with and (suspected) exposure to COVID-19 (principal)
CPT/HCPCS: 87635; C9803

== ENCOUNTER 2022-10-01 12:12 | Day surgery (SDC) | payer MEDICARE, SELFPAY ==
[2022-09-24 08:55] VITALS: BMI 25.4
[2022-10-01] VITALS (10 sets, daily range): BP systolic 99–154; BP diastolic 65–86; PULSE 77–88; RESP 13–17; TEMP 36.3–36.4; O2SAT 92–98; BMI 25.4
--- NOTE | 2022-10-01 10:06 | DI.RAD.S_ITS ---
PROCEDURE: XR KNEE RT 1TO2V INDICATIONS: post op total knee TECHNIQUE: Two view(s) of the knee acquired. COMPARISON: [facility], , XR KNEE RT 3V, 06/29/2022, 10:07. FINDINGS: Bones: Patient is status post knee joint arthroplasty. Hardware components are in expected positions. Visualized bony structures are intact. Soft tissues: Overlying postoperative changes are noted. IMPRESSION: Expected appearance post right total knee arthroplasty. Dictated by: Fawn Powell M.D. on 10/01/2022 at 18:24 Approved by: Fawn Powell M.D. on 10/01/2022 at 18:24
[2022-10-01] MEDS: ACETAMINOPHEN 325 MG TABLET 975 MG PO (13:37)
[2022-10-01] MEDS: CELECOXIB 200 MG CAPSULE PO (13:38)
[2022-10-01] MEDS: PREGABALIN 75 MG CAPSULE PO (13:38)
[2022-10-01] MEDS: LACTATED RINGERS 1,000 ML 42 ML IV ×2 (13:44→17:00)
--- NOTE | 2022-10-01 15:10 | PM.PREOP ---
Pre-operative Note COVID-19 COVID-19 status: Negative Result date/Date tested (Pos, Neg/Pending): 09/29/22 Interval Note History & Physical reviewed/Exam performed by Physician: Yes Changes to H&P: No
[2022-10-01] MEDS: CEFAZOLIN 2 GM/100 ML PREMIX 100 ML IV (16:00)
[2022-10-01] MEDS: TRANEXAMIC ACID 1,000 MG VIAL 1000 MG INJ ×2 (16:15→17:09)
--- NOTE | 2022-10-01 16:34 | SUR.OPER ---
Addendum entered by Natasha Ignacio R.N. 10/01/22 16:35: deMayo positioner used for right leg, padded with foam and secured with coban Original Note: Supine on padded OR bed, head on pillow, arms secured on padded arm boards at <90 degrees abduction, legs uncrossed, safety belt at abdomen, tape over blanket over lower left leg.
[2022-10-01] MEDS: BUPIVACAINE 0.25% (PF) 60 ML, EPINEPHrine 0.3 MG INJ (17:12)
[2022-10-01] MEDS: MORPHINE 4 MG/ML INJ INJ (17:13)
--- NOTE | 2022-10-01 17:28 | P.OP_ITS ---
Operative Date/Time/Diagnoses Date of procedure: 10/01/22 Time of procedure: 17:28 Pre-op diagnosis: Right knee osteoarthritis Post-op diagnosis: same Procedure & Clinicians Procedure: Right total knee replacement Same procedure as scheduled: Yes Indications: The patient has had progressively worsening right knee pain with radiographic changes consistent with arthritis. Non-operative management has failed and the patient has requested total knee replacement. The risks, benefits and alternatives to surgery were discussed with the patient prior to proceeding. Risks discussed included, but were not limited to, failure to relieve pain, stiffness, infection, nerve damage, deep venous thrombosis, pulmonary embolism, stroke, coma, heart attack, permanent paralysis and , as well as the potential need for eventual revision of the prosthetic. Surgeon: Ganga Matthews Stain Sprayer: Keli Nina Click Yes if Unassisted: No Anesthesia Type: General, Spinal and Local Operative Notes Findings: Severe medial and moderate patellofemoral osteoarthritis with relative preservation of the lateral compartment. Closure Type: primary Specimen(s): none sent Prosthetic devices, grafts, tissues, transplants, or devices: Implants used in this procedure were manufactured by the [employer] and [employer] and included the BCS II Journey total knee replacement with a size 4 right cobalt chromium femoral component, size 3 right non porous tibial base plate, a 10 mm cross-linked polyethylene tibial insert and a 29 mm oval Amanda II patella. Applied: implant(s) Estimated Blood Loss (mL): 25 Blood products transfused: none Tourniquet time (min): 47 Procedure in detail: The patient was seen in the pre-operative area, where the patient identified the right knee as the operative site and this was marked with my initials. The patient received pre-operative antibiotics, and was taken to the operating room and placed on the operative table in the supine position. After satisfactory anesthesia, a multimedia services coordinator out was performed. The right leg was encircled with a tourniquet about the proximal thigh, and the leg was prepared from the toes to the tourniquet with ChloroPrep in the usual fashion and draped through sterile drapes. The leg was elevated and exsanguinated with Eschmark bandage and the tourniquet inflated to 250 mmHg pressure. The knee was approached through an approximately 18 cm incision centered over the patella and carried into the knee through a medial parapatellar arthrotomy. The anterior osteophytes and soft tissues were removed. The rotational landmarks of Stewardson's line and the transepicondylar axis were marked on the femur with electrocautery, and intramedullary guide holes for the femur and tibia were created. The distal femoral cut was made in 6 degrees of valgus using the intramedullary guide at the primary cut setting. The proximal tibial cut was then made using the intramedullary guide, taking 9 mm of bone off the less involved side. The extension gap was checked and the rotation of the femoral component confirmed with the gap balancing system. The anterior, posterior and chamfer cuts were then made. The posterior osteophytes and soft tissues were then removed. The posterior capsule was injected with part of a mixture of 60 ml 0.25% Marcaine mixed with 20 ml Exparel and 4 mg of morphine for post-operative pain control. The remainder of this mixture was injected into the capsule and subcutaneous tissues during cement curing. The tibia was prepared with the rotation set by an extra medullary guide. Trial tibial and femoral components were then placed and the intercondylar notch cut through the femoral trial. Range of motion was 0-140 degrees, with good stability throughout the range. The patella was then cut to accommodate the patellar prosthetic. There was no need for a lateral release. The trials were then removed, and the femoral hole plugged with a bone plug. The bone was prepared with pulsatile lavage, and dried with a sponge. Cement was applied and the final prosthetics placed. Excess cement was removed during and after cement curing. After confirming there was no extruded cement posteriorly, the final tibial insert was placed. The knee was copiously irrigated and the tourniquet deflated. Hemostasis was obtained. The capsule was closed with interrupted # 2 polyester suture. The subcutaneous layer was closed with 3-0 Vicryl, and the skin with a running 3-0 V-Lock suture and Dermabond. An Aquacel Ag dressing was applied and the patient was taken to recovery having tolerated the procedure well. The services of Salvador Nnia were required as a skilled auction assistant for positioning, exposure and retraction to protect vital structures. The procedure could not have been completed safely and expediently without the presence of a skilled surgical brace maker. Complications: none Post-operative Condition: stable Disposition: PACU Plan for aftercare: The patient will be maintained on a standard total knee replacement protocol with weight bearing as tolerated. The patient will receive aspirin and sequential compression devices for DVT prophylaxis. The patient will be discharged home when safe for the home environment.
[2022-10-01] MEDS: LACTATED RINGERS 1,000 ML 100 ML IV (19:04)
[2022-10-01] MEDS: ACETAMINOPHEN 325 MG TABLET 650 MG PO (20:50)
[2022-10-01] MEDS: IBUPROFEN 400 MG TABLET PO (20:50)
[2022-10-01] MEDS: DOCUSATE 100 MG CAPSULE PO (20:50)
[2022-10-01] MEDS: VIT C/E/ZN/COPPR/LUTEIN/ZEAXAN CAPSULE 1 CAP PO (20:50)
[2022-10-01] MEDS: ASPIRIN EC 81 MG TABLET PO (20:50)
[2022-10-02] MEDS: CEFAZOLIN 2 GM/100 ML PREMIX 100 ML IV ×2 (00:10→08:04)
[2022-10-02] MEDS: IBUPROFEN 400 MG TABLET PO ×2 (01:06→04:56)
[2022-10-02] MEDS: ACETAMINOPHEN 325 MG TABLET 650 MG PO (01:07)
[2022-10-02 01:56] VITALS: BP 121/79; PULSE 88; RESP 16; TEMP 36.5; O2SAT 97
[2022-10-02] MEDS: OXYCODONE IR 5 MG TABLET PO ×2 (01:57→04:55)
[2022-10-02 05:20] VITALS: BP 118/66; PULSE 75; RESP 18; TEMP 36.4; O2SAT 92
[2022-10-02 07:55] VITALS: BP 106/64; PULSE 84; RESP 16; TEMP 36.3; O2SAT 96
--- NOTE | 2022-10-02 08:45 | PM.DS.1 ---
History of Present Illness History of Present Illness Date Patient Seen: 10/02/22 Time Patient Seen: 08:45 Chief complaint: OPB Narrative: The history and physical is contained in the chart in a previously completed note. Please refer to that note for this information. Discharge Providers Provider Date of admission: October 01, 2022 Discharge Date: 10/02/22 Primary care physician: Tara Cruz DO Consults: 10/01/22 18:18 Consult to Discharge Planning Routine Comment: Consult to Physical Therapy Evaluate & Treat Comment: Physician Instructions: postop TKA protocol Discharge provider: Ganga Matthews MD Summary Hospital Course Discharge Diagnosis: Osteoarthritis of right knee Hospital Course: The patient was admitted to the hospital and taken directly to the operating room on October 01, 2022 where she underwent a right total knee replacement without complications. She was comfortable on postoperative day 1. She had not had physical therapy yet but it is anticipated at the time of this dictation that she should be ready for discharge home today. Status at Discharge Cognitive/behavioral status at discharge: at baseline, oriented Functional status at discharge: uses cane/walker Overall status at discharge: patient is progressing back to baseline Time Spent with Patient Time spent: Less than 30 minutes Exam Vital Signs (past 8 hours): - 10/02/22 01:56 10/02/22 05:20 10/02/22 07:55 Temperature 97.7 F 97.6 F 97.3 F L Pulse Rate 88 75 84 Respiratory Rate 16 18 16 Blood Pressure 121/79 118/66 106/64 Pulse Oximetry 97 92 96 Oxygen Flow Rate 0 Oxygen Delivery Method Room Air Oxygen Flow Rate 0 Narrative Exam Narrative: Right knee wound is dressed with no drainage on the bandage. Calf is soft. Light touch and motion are intact in the right lower extremity. [facility] Medical History (Updated 09/24/22 @ 10:30 by Cecilia Luna RN) Acid reflux CAD (coronary artery disease) Chronic bronchitis Current every day smoker Degenerative joint disease of knee, right Elevated cholesterol Elevated WBCs HTN (hypertension) Insomnia Insomnia Macular degeneration of both eyes Myocardial infarction (2013) Osteoarthritis Pre-diabetes Raynaud's phenomenon Recurrent right knee instability Stomach ulcer (~2019) Unspecified kidney failure (2013) Surgical History (Updated 09/25/22 @ 09:50 by Cecilia Luna RN) History of gynecologic surgery History of nasal surgery History of surgery Hx of bilateral cataract extraction Hx of blepharoplasty Hx of esophagogastroduodenoscopy Hx of heart artery stent (2014) Social History household members: spouse Smoking Status: Current every day smoker alcohol intake: current Discharge Assessment & Plan Assessment and Plan Assessment: Stable postoperative day 1 status post right total knee replacement. Plan of Treatment: Discharge today. Follow up in my office in 10-14 days. Prescriptions have been sent in for oxycodone for pain relief. She is been instructed in the use of anti-inflammatories and Tylenol for additional pain relief and the use of low-dose aspirin for DVT prophylaxis. Discharge Plan Discharge Plan Patient Disposition: Home Discharge orders & Medications Discharge Orders: Discharge (Order); Ordered 10/02/22 Ordered By: Ganga Matthews Prescriptions: New acetaminophen 325 mg Tablet 650 mg PO Q6HR Qty: 250 0RF aspirin 81 mg Tablet,Delayed Release (Dr/Ec) 81 mg PO BID Qty: 84 0RF ibuprofen 400 mg Tablet 400 mg PO Q4HR Qty: 250 0RF oxycodone 5 mg Tablet 5 mg PO Q4H PRN (Reason: Pain, Moderate (4-6)) Qty: 40 0RF Continued Complete Multivitamin Tablet 1 tab PO DAILY metoprolol succinate 50 mg tablet extended release 24 hr 50 mg PO DAILY Qty: 90 2RF losartan 25 mg tablet 25 mg PO DAILY Qty: 90 0RF Rx Instructions: PT WILL NEED TO BE SEEN BEFORE NEXT FILL 09/11/21 potassium chloride 10 mEq Tablet Extended Release 10 meq PO DAILY esomeprazole magnesium 20 mg Tablet,Delayed Release (Dr/Ec) 20 mg PO DAILY PRN (Reason: GI upset) PreserVision AREDS-2 250-90-40-1 mg Capsule 1 tab PO BID Praluent Pen 75 mg/mL Pen Injector 75 mg SUBCUT Q14D furosemide 20 mg tablet 20 mg PO DAILY Discontinued aspirin [Adult Low Dose Aspirin] 81 mg tablet,delayed release (DR/EC) 81 mg PO DAILY Follow up/Referrals: Tara Cruz DO [Primary Care Provider] - Ganga Matthews MD [Physician] - As previously scheduled Diet/Activity/Treatments Diet: Diet as Tolerated and Regular Activity: You may bear weight as tolerated on your right leg. Cold/Heat Therapy: Apply ice to the right knee for 15 minutes every hour as needed for pain control. Skin/Wound/Dressing Care Report to your healthcare provider any signs of infection, such as:: chills, fever, night sweats, increased pain, unusual drainage and unusual redness Dressing: You may remove the Michael wrap 3 days after surgery and shower normally. Leave the deeper dressing in place until follow-up. If the central strip of the dressing becomes saturated with either water or blood, please call the office to have it evaluated. Visit Report/Discharge Packet Instructions: DI for Knee Replacement Stand Alone Forms: Surgery Discharge Discharge Data Primary Care Provider: Tara Cruz Attending Provider: Ganga Matthews VTE Deep Vein Thrombosis/Pulmonary Embolism Present on Admission: No
[2022-10-02] MEDS: ASPIRIN EC 81 MG TABLET PO (10:29)
[2022-10-02] MEDS: DOCUSATE 100 MG CAPSULE PO (10:29)
[2022-10-02 10:34] VITALS: BP 97/61; PULSE 100
[2022-10-02 10:35] VITALS: BP 97/61; PULSE 100
[2022-10-02] MEDS: VIT C/E/ZN/COPPR/LUTEIN/ZEAXAN CAPSULE 1 CAP PO (10:35)
--- NOTE | 2022-10-02 10:51 | CM.DANOTE ---
Initial DCP Assessment Note Pt is a 72 yo female, resident of [facility], now POD#1 from right total knee replacement by Dr Matthews PCP: Tara Cruz Payer: BRINDA PARRA Reviewed chart, pt discussed in multidisciplinary rounds this morning. Therapy pending this morning but expected to clear pt for return home w/family to assist as pt has planned for home, DC order from Ortho has already been initiated this morning. No barriers identified at this time to patient's safe discharge home w/family to assist; close outpatient f/u recommended. ASHWIN Mckeon Discharge Planning/Care Management CM Discharge Assessment Start: 10/02/22 10:47 Freq: Status: Active Protocol: Document 10/02/22 10:47 JANE (Rec: 10/02/22 10:51 JANE [id number]) Discharge Planning Assessment Assigned Care Partner ASHWIN Blevins DPOA/Assigned Designee Name Ernie Dubose, spouse Contact Information [phone] Advance Directives? No History Provided By Patient,Significant Other, Medical Record Prior Living Arrangements House Household Members spouse Independent with ADL's Yes Is patient alert and oriented? Yes Barriers to Discharge No Comment Home w/spouse and close outpatient follow up expected, PT pending this morning Discharge Plan Home Transportation Arrangement family Referrals Initiated None needed
--- NOTE | 2022-10-02 12:45 | PT.IIE ---
Current Diagnoses Unilateral primary osteoarthritis, right knee (10/01/22) Surgery Performed Operation Date: 10/01/22 15:00 Actual Procedures p Total Knee Arthroplasty(Right) - Ganga Matthews MD Surgical History (Last Updated 09/25/22 @ 09:50 by Cecilia Luna, RN) History of gynecologic surgery History of nasal surgery History of surgery Hx of bilateral cataract extraction Hx of blepharoplasty Hx of esophagogastroduodenoscopy Hx of heart artery stent (2013) Medical History (Last Updated 09/24/22 @ 10:30 by Cecilia Luna RN) Acid reflux CAD (coronary artery disease) Chronic bronchitis Current every day smoker Degenerative joint disease of knee, right Elevated cholesterol Elevated WBCs HTN (hypertension) Insomnia Insomnia Macular degeneration of both eyes Myocardial infarction (2013) Osteoarthritis Pre-diabetes Raynaud's phenomenon Recurrent right knee instability Stomach ulcer (~2019) Unspecified kidney failure (2013) Physical Therapy Inpatient Evaluation/Re-Eval M1 PT/OT-IP Prior Functional Status Start: 10/02/22 11:43 Freq: NEEDED Status: Discharge Protocol: Document 10/02/22 14:47 LRN (Rec: 10/02/22 15:17 LRN [id number]) Medical Review Prior Functional Status Medical History Reviewed Yes Diet/Fluid Consistency Regular Mobility and Gait Antalgic gait without assitive device. Activities of Daily Living and IADL's Independent Social History Household Members spouse Living Arrangements House Number of Floors (Floors) One Floor Number of Stairs To Enter/Railing? 0 Home Environment Standard Height Toilet,Walk in Shower Home Equipment Four Wheel Walker,Straight Cane,Bedside Commode,Raised Toilet Seat w/Armrests Employment Status Retired Additional Social History Comment Spouse to assist. M2 PT-IP Current Condition Start: 10/02/22 11:43 Freq: NEEDED Status: Discharge Protocol: Document 10/02/22 14:47 LRN (Rec: 10/02/22 15:17 LRN [id number]) Physical Therapy Current Condition Current Condition Evaluation Date 10/02/22 Treatment Diagnosis s/p R TKA Onset Date 10/01/22 M3 PT-IP Subjective Start: 10/02/22 11:43 Freq: NEEDED Status: Discharge Protocol: Document 10/02/22 14:47 LRN (Rec: 10/02/22 15:17 LRN [id number]) Subjective Physical Therapy Visit Type Type Initial Evaluation Visit Start Time 11:45 Visit Stop Time 12:45 Total Visit Minutes 60 Notes 1 Physical Therapy Visit Comments Patient Comments At rest the pt reports her pain is 2-3/10 with pain medications. Pt comments how painful ex's are and that she has not been able to straighten the R knee Pt c/o pain with ambulation. Patient Goals Pt goal is to have a good outcome following her TKA surgery and to go home today. Therapy Pain Assessment Pain When Pain Assessed At Rest Pain Present Pain Present Pain Reported Location R knee Intensity 3 Scale Used Numeric (0 - 10) M4 PT-IP Mobility and Gait Start: 10/02/22 11:43 Freq: NEEDED Status: Discharge Protocol: Document 10/02/22 14:47 LRN (Rec: 10/02/22 15:17 LRN [id number]) PT-Bed Mobility Assessment Rolling Type of Rolling Bilateral Level of Assist Independent Supine to Sit Supine to Sit Standby Assistance Sit to Supine Sit to Supine Minimal Assistance Scooting Scooting to Edge of Bed Independent PT-Transfer Assessment Sit to and From Stand Sit to and from Stand Standby Assistance Equipment Transfer Assistive Device Front Wheeled Walker Transfers Transfer Destination Bed Transfer Ability Level of Assist Standby Assistance,Minimal Assistance Comments Mobility Comments Pt transfer with SBA except for Adonay to help lift RLE in/ out of bed due to poor quad and hip flexor control. Gait Assessment Gait Gait Assistance Required: Standby Assistance,Contact Guard Assist Distance (Feet) 30 Able to Maintain Weight Bearing Status Yes During Gait Assistive Devices Assistive Device Gait Belt,Front Wheeled Walker Orthotic/Prosthetic Devices or Brace: No Gait Deviations General Gait Pattern Antalgic,Decreased Stride Length,Decreased Feet Clearance,Step-to Gait Factors Limiting Gait Function Factors Limiting Gait Function Decreased Activity Tolerance, Decreased Strength,Limited Range of Motion,Pain Stair Climbing Assessment Comments Stair Climbing Comments Stair training no performed due to pt having no steps at home. PT-Balance Assessment Sitting Balance and Reactions Static Sitting Balance Ability Normal Dynamic Sitting Balance Ability Good Standing Balance and Reactions Static Standing Balance Ability Good Dynamic Standing Balance Ability Good M5 PT-IP Objective Assessments Start: 10/02/22 11:43 Freq: NEEDED Status: Discharge Protocol: Document 10/02/22 14:47 LRN (Rec: 10/02/22 15:17 LRN [id number]) Orientation Orientation/Cognition Level of Alertness Alert Orientation Name,Month,Year,Place, Situation Language Function Ability No Deficits Noted Safety Awareness Understands Safety Issues Memory Description No Deficits Noted Gross Range of Motion Upper Extremity ROM Assessment Within Functional Limits Lower Extremity ROM Assessment Right Impaired Impairments Pt lacks R knee AROM. AAROM: In bed: R knee is 5- 15 deg's. Pt did tolerate ~45-50 deg's of knee flexion when sitting at EOB. Strength Upper Extremity Strength Assessment Within Functional Limits Lower Extremity Strength Assessment Right Impaired Comments Strength Comments L LE strength is generally 4+/ 5. R Quad-1/5, R Hamstrings 2/5. R ankle strength is 5/5 except PF is 3/5. R hip flexors is 2/5, Gluteals 2/5. Sensation Assessment Comments Sensation Comments R knee in ALLYN wrap, unable to assess. LLE is WNL M6 PT-IP Treatment Start: 10/02/22 11:43 Freq: NEEDED Status: Discharge Protocol: Document 10/02/22 14:47 LRN (Rec: 10/02/22 15:17 LR [id number]) Physical Therapy Treatment Exercises Exercises Ankle Pumps,Gluteal Sets,Quad Sets,Heel Slides,Straight Leg Raises,Short Arc Quads Education Education Provided Weight Bearing Status,Post-Op Packet Other Treatments Other Treatment Performed Pt was returned to bed at end of treatment with bed alarm on , SCD's in place, tray table and call light within reach. Pt verbally I/S and educated in best transfer method to get in/out of car from passenger side with seat all way back and use of hand outfitter cabin support above door. I/S pt in ex's to focus to improve her R knee AROM and to improve Quadricep strength. Educated pt and spouse the best way for spouse to assist pt in/out of bed and in/out of car. M7 PT-IP Assessment and Plan Start: 10/02/22 11:43 Freq: NEEDED Status: Discharge Protocol: Document 10/02/22 14:47 LRN (Rec: 10/02/22 15:17 [facility] [id number]) PT Summary Assessment and Plan Potential Rehabilitation Potential Good Status of Condition at Evaluation Evolving Summary Impairments Pain,ROM,Strength,Bed Mobility ,Transfers,Gait,Activity Tolerance Assessment Summary Pt is a 72 yo female, s/p R TKA, POD #1. Pt has very limited R knee mobility activey and passively. She had been medicated for her pain, but still voiced complaints of pain with gait and knee ROM exercises. The pt had many questions regarding her rehabilitation and areas for her to focus on with therapy. Pt appeared to need repetition of information presented for understanding. She showed good vital signs with transfers and had good tolerance to changes in position. The pt had difficulty with gait, stepping too close into the walker and was WBing more through her LE 's than necessary. One more session for gait training to improve the pt's safety with gait would be recommended. Goals Bed Mobility Goal Independent Transfer Goal Minimal Assistance Gait Goal Independent,Standby Assistance Gait Distance 50' Days to Meet Goals 1 Frequency of Treatment Frequency Of Treatment Twice a Day Treatment Plan Physical Therapy Treatment Plan Bed Mobility Training,Transfer Training,Gait Training, Therapeutic Exercise,Post Op Education Precautions Other Precautions TKA precautions Weight Bearing Status Weight Bearing Status Weight Bear as Tolerated Recommendations To Nursing Amount of Assist Needed Standby Assistance,1 Person Assist Discharge Recommendations PT Discharge Recommendations Home with Assistance Equipment Needed for Home Before FWW Discharge Transportation Needs at Discharge Private Vehicle
--- NOTE | 2022-10-02 13:45 | PT.IPTN ---
Current Diagnoses Unilateral primary osteoarthritis, right knee (10/01/22) Surgery Performed Operation Date: 10/01/22 15:00 Actual Procedures p Total Knee Arthroplasty(Right) - Ganga Matthews MD Physical Therapy Treatment Note M2 PT-IP Current Condition Start: 10/02/22 11:43 Freq: NEEDED Status: Discharge Protocol: Document 10/02/22 14:47 LRN (Rec: 10/02/22 15:17 LRN [id number]) Physical Therapy Current Condition Current Condition Evaluation Date 10/02/22 Treatment Diagnosis s/p R TKA Onset Date 10/01/22 M3 PT-IP Subjective Start: 10/02/22 11:43 Freq: NEEDED Status: Discharge Protocol: Document 10/02/22 14:47 LRN (Rec: 10/02/22 15:17 LRN [id number]) Subjective Physical Therapy Visit Type Type Initial Evaluation Visit Start Time 11:45 Visit Stop Time 12:45 Total Visit Minutes 60 Notes 1 Physical Therapy Visit Comments Patient Comments At rest the pt reports her pain is 2-3/10 with pain medications. Pt comments how painful ex's are and that she has not been able to straighten the R knee Pt c/o pain with ambulation. Patient Goals Pt goal is to have a good outcome following her TKA surgery and to go home today. Therapy Pain Assessment Pain When Pain Assessed At Rest Pain Present Pain Present Pain Reported Location R knee Intensity 3 Scale Used Numeric (0 - 10) M4 PT-IP Mobility and Gait Start: 10/02/22 11:43 Freq: NEEDED Status: Discharge Protocol: Document 10/02/22 14:47 LRN (Rec: 10/02/22 15:17 LRN [id number]) PT-Bed Mobility Assessment Rolling Type of Rolling Bilateral Level of Assist Independent Supine to Sit Supine to Sit Standby Assistance Sit to Supine Sit to Supine Minimal Assistance Scooting Scooting to Edge of Bed Independent PT-Transfer Assessment Sit to and From Stand Sit to and from Stand Standby Assistance Equipment Transfer Assistive Device Front Wheeled Walker Transfers Transfer Destination Bed Transfer Ability Level of Assist Standby Assistance,Minimal Assistance Comments Mobility Comments Pt transfer with SBA except for Adonay to help lift RLE in/ out of bed due to poor quad and hip flexor control. Gait Assessment Gait Gait Assistance Required: Standby Assistance,Contact Guard Assist Distance (Feet) 30 Able to Maintain Weight Bearing Status Yes During Gait Assistive Devices Assistive Device Gait Belt,Front Wheeled Walker Orthotic/Prosthetic Devices or Brace: No Gait Deviations General Gait Pattern Antalgic,Decreased Stride Length,Decreased Feet Clearance,Step-to Gait Factors Limiting Gait Function Factors Limiting Gait Function Decreased Activity Tolerance, Decreased Strength,Limited Range of Motion,Pain Stair Climbing Assessment Comments Stair Climbing Comments Stair training no performed due to pt having no steps at home. PT-Balance Assessment Sitting Balance and Reactions Static Sitting Balance Ability Normal Dynamic Sitting Balance Ability Good Standing Balance and Reactions Static Standing Balance Ability Good Dynamic Standing Balance Ability Good M5 PT-IP Objective Assessments Start: 10/02/22 11:43 Freq: NEEDED Status: Discharge Protocol: Document 10/02/22 14:47 LRN (Rec: 10/02/22 15:17 LRN [id number]) Orientation Orientation/Cognition Level of Alertness Alert Orientation Name,Month,Year,Place, Situation Language Function Ability No Deficits Noted Safety Awareness Understands Safety Issues Memory Description No Deficits Noted Gross Range of Motion Upper Extremity ROM Assessment Within Functional Limits Lower Extremity ROM Assessment Right Impaired Impairments Pt lacks R knee AROM. AAROM: In bed: R knee is 5- 15 deg's. Pt did tolerate ~45-50 deg's of knee flexion when sitting at EOB. Strength Upper Extremity Strength Assessment Within Functional Limits Lower Extremity Strength Assessment Right Impaired Comments Strength Comments L LE strength is generally 4+/ 5. R Quad-1/5, R Hamstrings 2/5. R ankle strength is 5/5 except PF is 3/5. R hip flexors is 2/5, Gluteals 2/5. Sensation Assessment Comments Sensation Comments R knee in ALLYN wrap, unable to assess. LLE is WNL M6 PT-IP Treatment Start: 10/02/22 11:43 Freq: NEEDED Status: Discharge Protocol: Document 10/02/22 14:47 LRN (Rec: 10/02/22 15:17 LRN [id number]) Physical Therapy Treatment Exercises Exercises Ankle Pumps,Gluteal Sets,Quad Sets,Heel Slides,Straight Leg Raises,Short Arc Quads Education Education Provided Weight Bearing Status,Post-Op Packet Other Treatments Other Treatment Performed Pt was returned to bed at end of treatment with bed alarm on , SCD's in place, tray table and call light within reach. Pt verbally I/S and educated in best transfer method to get in/out of car from passenger side with seat all way back and use of hand registered diet technician support above door. I/S pt in ex's to focus to improve her R knee AROM and to improve Quadricep strength. Educated pt and spouse the best way for spouse to assist pt in/out of bed and in/out of car. M7 PT-IP Assessment and Plan Start: 10/02/22 11:43 Freq: NEEDED Status: Discharge Protocol: Document 10/02/22 14:47 LRN (Rec: 10/02/22 15:17 LRN [id number]) PT Summary Assessment and Plan Potential Rehabilitation Potential Good Status of Condition at Evaluation Evolving Summary Impairments Pain,ROM,Strength,Bed Mobility ,Transfers,Gait,Activity Tolerance Assessment Summary Pt is a 72 yo female, s/p R TKA, POD #1. Pt has very limited R knee mobility activey and passively. She had been medicated for her pain, but still voiced complaints of pain with gait and knee ROM exercises. The pt had many questions regarding her rehabilitation and areas for her to focus on with therapy. Pt appeared to need repetition of information presented for understanding. She showed good vital signs with transfers and had good tolerance to changes in position. The pt had difficulty with gait, stepping too close into the walker and was WBing more through her LE 's than necessary. One more session for gait training to improve the pt's safety with gait would be recommended. Goals Bed Mobility Goal Independent Transfer Goal Minimal Assistance Gait Goal Independent,Standby Assistance Gait Distance 50' Days to Meet Goals 1 Frequency of Treatment Frequency Of Treatment Twice a Day Treatment Plan Physical Therapy Treatment Plan Bed Mobility Training,Transfer Training,Gait Training, Therapeutic Exercise,Post Op Education Precautions Other Precautions TKA precautions Weight Bearing Status Weight Bearing Status Weight Bear as Tolerated Recommendations To Nursing Amount of Assist Needed Standby Assistance,1 Person Assist Discharge Recommendations PT Discharge Recommendations Home with Assistance Equipment Needed for Home Before FWW Discharge Transportation Needs at Discharge Private Vehicle
== END 2022-10-02 14:28 | disposition home or self-care (01) ==
LOC: OR 12:27 → AC 14:58
PROVIDERS: Family Provider Student in an Organized Health Care Education/Training Program; PCP Student in an Organized Health Care Education/Training Program; Referring Provider Orthopaedic Surgery; Visit Provider Orthopaedic Surgery
PROC: 0SRC0JZ Replacement of Right Knee Joint with Synthetic Substitute, Open Approach (ICD-10-PCS; CPT 27447; principal; 2022-10-01 15:00)
DX: M17.11 Unilateral primary osteoarthritis, right knee (principal); J44.9 Chronic obstructive pulmonary disease, unspecified; I50.9 Heart failure, unspecified; I10 Essential (primary) hypertension; I25.10 Atherosclerotic heart disease of native coronary artery without angina pectoris; I25.2 Old myocardial infarction; F17.210 Nicotine dependence, cigarettes, uncomplicated
CPT/HCPCS: 27447; 73560; 97110; 97116; 97162; 97530; 97535; C1776; C1713; J0171; J0690; J2250; J2270; J2405; J2704; J3010

== ENCOUNTER → 2022-12-15 10:59 | Outpatient (CLI) | payer MEDICARE, SELFPAY ==
[2022-10-01 19:06] VITALS: BMI 25.4
== END ==
PROVIDERS: Family Provider Student in an Organized Health Care Education/Training Program; PCP Student in an Organized Health Care Education/Training Program; Visit Provider Nurse Practitioner Family
DX: R30.0 Dysuria (principal)
CPT/HCPCS: 87086

== ENCOUNTER → 2023-09-10 07:08 | Outpatient (CLI) | payer MEDICARE, SELFPAY ==
[2022-10-01 19:06] VITALS: BMI 25.4
--- NOTE | 2023-09-10 | DI.ECHO.S_ITS ---
[place] [facility]---------+ [facility] +---------+ : : [address] : : : : [id number] : : : : Phone: [phone] Echocardiogram Report + + :Name: DONOVAN CORBIN Study Date: 09/10/2023 Height: 61 in : :[facility] ReadingLocation: Weight: 135 lb : : Gender: Female BSA: 1.6 m2 : :: 1950 Age: 73 yrs BP: 119/81 mmHg: :Reason For Study: HEART FAILURE : :Ordering Physician: WALDO, : :JUS Performed By: Alejandra De La Rosa : :Referring: JUS HAAS : + + Interpretation Summary Left ventricular ejection fraction is estimated to be 40 +/- 5%. Inferior, inferolateral hypokineis. Septal hypokinesis Procedure: Images were not obtained from all of the standard acoustic windows due to the limited scope of the study. The study quality was technically adequate. Comparison is made with the echocardiogram of 01/10/2023. The patient was in sinus rhythm with heart rates between 61-78 bpm during the exam. Left Ventricle: The left ventricle is normal in size and wall thickness. Left ventricular ejection fraction is estimated to be 40 +/- 5%. Inferior, inferolateral hypokineis. Septal hypokinesis. Tricuspid Valve: The tricuspid valve is normal in structure and function. Pulmonary artery pressures cannot be estimated because of the lack of a measurable TR jet velocity. There is trace tricuspid regurgitation. Great Vessels: The IVC is of normal diameter and collapses greater than 50% with a sniff. This suggests a low right atrial pressure of 3 mm Hg. Pericardium/ Pleura There is no pericardial effusion. There is no pleural effusion. MMode/2D Measurements & Calculations LVIDd: 4.4 cm LA A4 area: 10.3 cm2 LVIDs: 3.2 cm LA length (vol): 3.7 cm FS: 27.2 % EPSS: 0.58 cm IVSd: 0.69 cm LVPWd: 0.75 cm LV kumar. diameter/BSA (cm/m^2): 2.8 LV sys. diameter/BSA (cm/m^2): 2.0 RA long axis: 3.8 cm TAPSE: 1.5 cm RA area: 10.7 cm2 RA vol: 25.8 ml RA : 16.1 ml/m2 IVC diam: 1.0 cm Doppler Measurements & Calculations MV E max raudel: 48.8 cm/sec MV A max raudel: 80.3 cm/sec MV E/A: 0.61 Med Peak E' Raudel: 4.3 cm/sec E/E' med: 11.4 Lat Peak E' Raudel: 5.4 cm/sec E/E' lat: 9.1 E/e' average: 10.3 MV dec time: 0.32 sec Reading Physician:10:21 AM
== END ==
PROVIDERS: Family Provider Student in an Organized Health Care Education/Training Program; PCP Student in an Organized Health Care Education/Training Program; Visit Provider Nurse Practitioner Family
DX: I50.9 Heart failure, unspecified (principal); I25.10 Atherosclerotic heart disease of native coronary artery without angina pectoris
CPT/HCPCS: 93307